=== PATIENT | male | born 1980 | race Caucasian/White ===

== ENCOUNTER 2021-11-27 11:51 | Inpatient (IN) | payer BC ==
--- NOTE | 2021-11-27 12:15 | ED ---
General Adult HPI - General Chief complaint: Psychiatric Symptoms Stated complaint: Mental Health Time Seen by Provider: 11/27/21 11:57 Source: patient, RN notes reviewed Mode of arrival: ambulatory Limitations: no limitations - History of Present Illness Initial comments: Patient is a pleasant 41-year-old male presenting to emergency department with mental health concerns. Patient reportedly has been off his medications. Patient reportedly was in an argument and threatened to harm himself with a knife. Patient is answering appropriately affirmative or negative however is not speaking at this time. Patient denies alcohol or street drug use. - Related Data Home Medications Medication Instructions Recorded Confirmed Albuterol Sulfate [Proventil Hfa] 2 puff INHALATION RT-Q4H PRN 11/27/21 11/27/21 Atorvastatin [Lipitor] 10 mg PO HS 11/27/21 11/27/21 Budesonide/Formoterol Fumarate 2 puff INHALATION RT-BID 11/27/21 11/27/21 [Symbicort 80-4.5 Mcg Inhaler] Sertraline [Zoloft] 150 mg PO HS 11/27/21 11/27/21 hydrOXYzine pamoate [Vistaril] 100 mg PO TID PRN 11/27/21 11/27/21 lamoTRIgine [LaMICtal] 50 mg PO DAILY 11/27/21 11/27/21 lamoTRIgine [LaMICtal] 100 mg PO HS 11/27/21 11/27/21 Allergies Allergy/AdvReac Type Severity Reaction Status Date / Time No Known Allergies Allergy Unverified 11/27/21 12:42 Review of Systems ROS Statement: Those systems with pertinent positive or pertinent negative responses have been documented in the HPI. ROS Other: All systems not noted in ROS Statement are negative. Constitutional: Denies: fever Eyes: Denies: eye pain ENT: Denies: ear pain Respiratory: Denies: dyspnea Cardiovascular: Denies: chest pain Endocrine: Denies: fatigue Gastrointestinal: Denies: abdominal pain Genitourinary: Denies: dysuria Musculoskeletal: Denies: back pain Skin: Denies: rash Psychiatric: Reports: depression, suicidal thoughts Past Medical History Past Medical History: No Reported History History of Any Multi-Drug Resistant Organisms: None Reported Past Surgical History: No Surgical Hx Reported Past Psychological History: Unable to Obtain Smoking Status: Current every day smoker Past Alcohol Use History: Daily Past Drug Use History: None Reported General Exam Limitations: no limitations General appearance: alert, in no apparent distress Head exam: Present: atraumatic Eye exam: Present: normal appearance Neck exam: Present: normal inspection Respiratory exam: Present: normal lung sounds bilaterally Cardiovascular Exam: Present: regular rate, normal rhythm GI/Abdominal exam: Present: soft. Absent: tenderness Extremities exam: Present: normal inspection Neurological exam: Present: alert. Absent: motor sensory deficit Psychiatric exam: Present: flat affect Skin exam: Present: normal color. Absent: abrasion Course Vital Signs 11/27/21 11:57 Temperature 98.5 F Pulse Rate 88 Respiratory 18 Rate Blood Pressure 142/102 O2 Sat by Pulse 95 Oximetry Medical Decision Making - Medical Decision Making Patient seen by mental health services with plans for admission. Disposition Clinical Impression: Depression Disposition: TRANSFER TO PSYCH HOSP/UNIT Is patient prescribed a controlled substance at d/c from ED?: No Referrals: None,Stated [Primary Care Provider] - 1-2 days Decision Time: 14:21
[2021-11-27] MEDS ORDERED: LORazepam 1 MG TAB PO STA (15:42)
[2021-11-27] MEDS ORDERED: ALBUTEROL INHALER 60 PUFF/8 GM INHALER (MHU) INHALATION PRN (18:27)
[2021-11-27] MEDS ORDERED: MAGNESIUM HYDROXIDE 2,400 MG/10 ML CUP PO PRN (18:28)
[2021-11-27] MEDS ORDERED: MAG HYDROX/AL HYDROX/SIMETH 30 ML CUP PO PRN (18:28)
[2021-11-27] MEDS ORDERED: ACETAMINOPHEN TAB 325 MG TAB PO PRN (18:28)
[2021-11-27] MEDS ORDERED: HALOPERIDOL LACTATE 5 MG/ML 1 ML VIAL IM PRN (18:30)
[2021-11-27] MEDS ORDERED: LORazepam 2 MG/ML INJ IM PRN (18:30)
[2021-11-27] MEDS ORDERED: haloperidoL 5 MG TAB PO PRN (18:30)
[2021-11-27] MEDS: lamoTRIgine 100 MG TAB PO SCH (21:05)
[2021-11-27] MEDS: ATORVASTATIN 10 MG TAB PO SCH (21:05)
[2021-11-27] MEDS: SERTRALINE 50 MG TAB PO SCH (21:05)
[2021-11-27] MEDS: SYMBICORT 80-4.5 MCG INHALER INHALATION SCH (21:06)
[2021-11-27] MEDS: NICOTINE 14MG/24HR PATCH TRANSDERM SCH (21:06)
--- NOTE | 2021-11-27 22:54 | P.MDCNMH ---
History of Present Illness H&P Date: 11/27/21 Chief Complaint: Suicidal attempt; medical clearance 41 year old man with history of depression, asthma, active nicotine and ETOH use presented for suicidal ideation with attempt to harm himself with a knife. Medicine consulted for clearance. Pt appears a bit tremulous today, but has no complaints of pain, and ROS is negative for n/v, f/c, cp, palps, dyspnea, abd pain, c/d, numbness/weakness. No labs or imaging to review. VSS afebrile, 112/70, HR 89. Review of Systems All Systems reviewed and pertinent positives and negatives noted in HPI, all other symptoms are negative Past Medical History Past Medical History: No Reported History History of Any Multi-Drug Resistant Organisms: None Reported Past Surgical History: No Surgical Hx Reported Past Psychological History: Unable to Obtain Smoking Status: Current every day smoker Past Alcohol Use History: Daily Past Drug Use History: None Reported Medications and Allergies Home Medications Medication Instructions Recorded Confirmed Type Albuterol Sulfate [Proventil Hfa] 2 puff INHALATION RT-Q4H PRN 11/27/21 11/27/21 History Atorvastatin [Lipitor] 10 mg PO HS 11/27/21 11/27/21 History Budesonide/Formoterol Fumarate 2 puff INHALATION RT-BID 11/27/21 11/27/21 History [Symbicort 80-4.5 Mcg Inhaler] Sertraline [Zoloft] 150 mg PO HS 11/27/21 11/27/21 History hydrOXYzine pamoate [Vistaril] 100 mg PO TID PRN 11/27/21 11/27/21 History lamoTRIgine [LaMICtal] 50 mg PO DAILY 11/27/21 11/27/21 History lamoTRIgine [LaMICtal] 100 mg PO HS 11/27/21 11/27/21 History Allergies Allergy/AdvReac Type Severity Reaction Status Date / Time No Known Allergies Allergy Unverified 11/27/21 12:42 Physical Exam Osteopathic Statement: *. No significant issues noted on an osteopathic structural exam other than those noted in the History and Physical/Consult. Vitals: Vital Signs Temp Pulse Resp BP Pulse Ox 11/27/21 17:53 89 20 112/70 11/27/21 11:57 98.5 F 88 18 142/102 95 Intake and Output 11/27/21 11/27/21 11/27/21 06:59 14:59 22:59 Other: Weight 78.88 kg Gen: awake, alert HEENT: normocephalic, atraumatic, good hearing acuity, moist mucous membranes Resp: good air exchange, breathing comfortably with no accessory muscle use CVS: good distal perfusion x 4, GI: soft, NTTP, ND : no SPT, no CVAT, carrero catheter not present MSK: no pitting edema, no clubbing Neuro: non-focal, moving all extremities Psych: cooperative, flat affect Cranial Nerve Examination - Cranial Nerves Cranial Nerve II- Optic: Intact Cranial Nerve III- Oculomotor: Intact Cranial Nerve IV- Trochlear: Intact Cranial Nerve V- Trigeminal: Intact Cranial Nerve - Abducens: Intact Cranial Nerve VII- Facial: Intact Cranial Nerve VIII- Auditory: Intact Cranial Nerve IX- Glossopharyngeal: Intact Cranial Nerve X- Vagus: Intact Cranial Nerve XI- Accessory: Intact Cranial Nerve XII- Hypoglossal: Intact Assessment and Plan Assessment: Asthma Nicotine use EtOH abuse -Continue home Symbicort -Albuterol when necessary -Nicotine patch -Alcohol cessation recommended, monitor for withdrawal -Ativan when necessary -Thiamine, folate, multivitamin -please follow up with us if there are any concerning lab findings on AM labs tomorrow Depression Suicidal ideation -Care per primary team A member of our group will be available 24/06 should any medical issues arise, please not hesitate to contact us, thank you for this consult.
[2021-11-28 07:54] LABS: Basophils # (A) 0.1 k/uL (0-0.2); Basophils % (A) 1 %; Eosinophils # (A) 0.2 k/uL (0-0.7); Eosinophils % (A) 3 %; HCT 47.5 % (39.0-53.0); HGB 15.9 gm/dL (13.0-17.5); Lymphocytes # (A) 1.7 k/uL (1.0-4.8); Lymphocytes % (A) 25 %; MCH 31.6 pg (25.0-35.0); MCHC 33.5 g/dL (31.0-37.0); MCV 94.6 fL (80.0-100.0); Monocytes # (A) 0.4 k/uL (0-1.0); Monocytes % (A) 6 %; Neutrophils # (A) 4.4 k/uL (1.3-7.7); Neutrophils % (A) 65 %; Platelet Count 261 k/uL (150-450); RBC 5.03 m/uL (4.30-5.90); RDW 12.6 % (11.5-15.5); WBC 6.8 k/uL (3.8-10.6)
[2021-11-28 08:20] LABS: ALT 17 U/L (4-49); AST 33 U/L (17-59); African American GFR (CKD) >90 (>60 ml/min/1.73 sqM); Albumin 4.5 g/dL (3.5-5.0); Alkaline Phosphatase 88 U/L (38-126); Anion Gap 8 mmol/L; Blood Urea Nitrogen 15 mg/dL (9-20); Calcium 10.1 mg/dL (8.4-10.2); Carbon Dioxide 27 mmol/L (22-30); Chloride 109 mmol/L (98-107); Glucose 91 mg/dL (74-99); Non-African American GFR(CKD) >90 (>60 ml/min/1.73 sqM); Potassium 4.6 mmol/L (3.5-5.1); Sodium 144 mmol/L (137-145); Total Bilirubin 0.6 mg/dL (0.2-1.3); Total Protein 7.4 g/dL (6.3-8.2)
[2021-11-28] MEDS: NICOTINE 14MG/24HR PATCH TRANSDERM SCH (09:18)
[2021-11-28] MEDS: MULTIVITAMINS, THERA 1 EACH TAB PO SCH (09:19)
[2021-11-28] MEDS: FOLIC ACID 1 MG TAB PO SCH (09:19)
[2021-11-28] MEDS: THIAMINE 100 MG TAB PO SCH (09:19)
[2021-11-28] MEDS: lamoTRIgine 25 MG TAB PO SCH (09:19)
[2021-11-28] MEDS: LORazepam 1 MG TAB PO PRN (09:24)
[2021-11-28] MEDS: SYMBICORT 80-4.5 MCG INHALER INHALATION SCH (12:12)
--- NOTE | 2021-11-28 12:26 | P.HP ---
Psychiatric H&P - . H&P Date: 11/28/21 History & Physical: Allergies Allergy/AdvReac Type Severity Reaction Status Date / Time No Known Allergies Allergy Unverified 11/27/21 12:42 Vital Signs Temp 98.5 F 11/27/21 11:57 Pulse 89 11/27/21 17:53 Resp 20 11/27/21 17:53 BP 112/70 11/27/21 17:53 Pulse Ox 95 11/27/21 11:57 Intake & Output 11/27/21 11/28/21 11/28/21 18:59 06:59 18:59 Weight 78.88 kg Laboratory Last Values WBC 6.8 k/uL (3.8-10.6) 11/28/21 07:12 RBC 5.03 m/uL (4.30-5.90) 11/28/21 07:12 Hgb 15.9 gm/dL (13.0-17.5) 11/28/21 07:12 Hct 47.5 % (39.0-53.0) 11/28/21 07:12 MCV 94.6 fL (80.0-100.0) 11/28/21 07:12 MCH 31.6 pg (25.0-35.0) 11/28/21 07:12 MCHC 33.5 g/dL (31.0-37.0) 11/28/21 07:12 RDW 12.6 % (11.5-15.5) 11/28/21 07:12 Plt Count 261 k/uL (150-450) 11/28/21 07:12 MPV 8.0 11/28/21 07:12 Neutrophils % 65 % 11/28/21 07:12 Lymphocytes % 25 % 11/28/21 07:12 Monocytes % 6 % 11/28/21 07:12 Eosinophils % 3 % 11/28/21 07:12 Basophils % 1 % 11/28/21 07:12 Neutrophils # 4.4 k/uL (1.3-7.7) 11/28/21 07:12 Lymphocytes # 1.7 k/uL (1.0-4.8) 11/28/21 07:12 Monocytes # 0.4 k/uL (0-1.0) 11/28/21 07:12 Eosinophils # 0.2 k/uL (0-0.7) 11/28/21 07:12 Basophils # 0.1 k/uL (0-0.2) 11/28/21 07:12 Sodium 144 mmol/L (137-145) 11/28/21 07:12 Potassium 4.6 mmol/L (3.5-5.1) 11/28/21 07:12 Chloride 109 mmol/L (98-107) H 11/28/21 07:12 Carbon Dioxide 27 mmol/L (22-30) 11/28/21 07:12 Anion Gap 8 mmol/L 11/28/21 07:12 BUN 15 mg/dL (9-20) 11/28/21 07:12 Creatinine 0.87 mg/dL (0.66-1.25) 11/28/21 07:12 Est GFR (CKD-EPI)AfAm >90 (>60 ml/min/1.73 sqM) 11/28/21 07:12 Est GFR (CKD-EPI)NonAf >90 (>60 ml/min/1.73 sqM) 11/28/21 07:12 Glucose 91 mg/dL (74-99) 11/28/21 07:12 Calcium 10.1 mg/dL (8.4-10.2) 11/28/21 07:12 Total Bilirubin 0.6 mg/dL (0.2-1.3) 11/28/21 07:12 AST 33 U/L (17-59) 11/28/21 07:12 ALT 17 U/L (4-49) 11/28/21 07:12 Alkaline Phosphatase 88 U/L (38-126) 11/28/21 07:12 Total Protein 7.4 g/dL (6.3-8.2) 11/28/21 07:12 Albumin 4.5 g/dL (3.5-5.0) 11/28/21 07:12 TSH 0.711 mIU/L (0.465-4.680) 11/28/21 07:12 Coronavirus (PCR) Not Detected (Not Detectd) 11/27/21 14:22 11/28/21 12:26 IDENTIFYING DATA: Patient is a , unemployed, 41-year-old male with significant history of bipolar disorder who presented with suicidal ideation and worsening depression. HPI: Patient presented to the hospital on 11/27/2021, accompanied by his family for depression and suicidal ideation. When evaluated by the EPS nurse, the patient was noted to be vague and unable to provide any clear history. The patient did admit that he was expressing suicidal ideation and reports that he cut himself in the finger as an attempt. As per patient's family, the patient also has not slept in a couple of days and has had a decrease in appetite. Upon evaluation on the unit, the patient continues to be vague in providing any significant history of prior to this presentation the hospital. The patient does admit that he has been feeling increasing depressed over the past few weeks and this culminated in him constant planning suicide and attempting to cut his finger in an attempt to kill himself. The he is expressing any acute stressors, the patient reports that he and his have not been getting along. The patient does not elaborate. He then later relented to this provider that he has been experiencing auditory hallucinations. He describes that he has been hearing the voice of the ancient [place] emperor Marge Hammer and that this has been bothering him. He reports that he has been experiencing auditory hallucinations intermittently for the past 6 years. He describes these hallucinations is being various different people that tell him different things. He reports that they're occasionally commanding in nature. He is otherwise denying any visual hallucinations. He reports no other delusions at this time. He reports no thought insertion, thought deletion, thought projection, paranoia, or any grandiosity. The patient reports that he has been adherent with his medication and he follows up with [facility] but that none of his medications work. He reports that he is willing to sign a release of information for us to speak with his as he is currently very vague and is unable to provide any clear history of events leading up to this hospitalization. PAST PSYCHIATRIC HISTORY: Patient reports that he follows with [facility]. He reports that he has been adherent with his home medications of Zoloft, Lamictal, and Vistaril. The patient has had numerous inpatient psychiatric hospitalizations with the last time being in [facility] in April 2021. The patient reports that he has been on numerous psychiatric medications including most antipsychotics. Seroquel, Abilify, and Invega. He reports that none of these medications have worked in the past. Patient reports prior attempts at suicide last time being him cutting his finger. PMH: Past Medical History: No Reported History History of Any Multi-Drug Resistant Organisms: None Reported Past Surgical History: No Surgical Hx Reported Past Psychological History: Unable to Obtain Smoking Status: Current every day smoker Past Alcohol Use History: Daily Past Drug Use History: None Reported ALLERGIES: NO KNOWN DRUG ALLERGIES CHEMICAL DEPENDENCY HISTORY:. Patient reports that he uses marijuana 1-2 times per month. He reports he smokes one half per day of tobacco. He denies any alcohol use. He denies any other drug use. FAMILY PSYCHIATRIC/SUBSTANCE USE HISTORY: The patient is unable to provide any previous family psychiatric or substance abuse history. SOCIAL HISTORY: Patient is currently for 14 years with his Julissa and they have 2 children ages 7 and 10 together. He is currently unemployed. MENTAL STATUS EXAM: General Appearance: Patient appears to be stated age but appears to be somewhat somnolent however he is directable, and attempts to cooperate. Patient appears to have poor hygiene and grooming. Behavior: Patient is seated without any agitated behavior. Eye contact is intermittent. Patient appears somnolent at this time. Speech: Patient's speech is monotone, and nonspontaneous, vague. Mood/Affect: Patient reports their mood is depressed, affect appears to be somnolent. Suicidality/Homicidality: Patient denies having any homicidal ideation intent or plan. Patient endorses suicidal ideation. Perceptions: Patient denies any visual hallucinations however patient reports auditory hallucinations. Though content/process: There is no evidence of any delusional thought content and thought process is linear and goal-directed. Memory and concentration: AOX3, grossly intact for the purposes of this session. Can spell "WORLD" backwards Judgment and insight: poor STRENGTHS/WEAKNESSES: Strength is that the patient appears to have a supportive family. Weakness is that the patient has previous attempts at suicide. He appears to be actively psychotic. INTELLECT: average IMPRESSIONS: Bipolar disorder, unspecified Rule out schizoaffective disorder, bipolar type Nicotine dependence Cannabis use disorder PLAN: -Patient is admitted under voluntary status to [facility]HU for stabilization of psychiatric symptoms and safety. Patient signed adult voluntary form and medication consent and is placed in patient's chart. -Medications : Will start patient on His home medications of Zoloft 150 mg at bedtime for depression/anxiety, Lamictal 50 mg by mouth every morning and 100 mg by mouth daily at bedtime for mood stabilization, and we will start the patient on Prolixin 2.5 mg at bedtime for psychosis. -Ativan and Haldol PRN for agitation/aggression -Patient was counselled on substance abuse and desired to cut back on use -Patient was informed of the risks, benefits and side effects of the medication and patient verbally consented to taking the medications. Patient signed med consent form and was placed in chart. -Internal Medicine consult to perform medical evaluation and physical. -NRT - nicotine patch -SW on board for discharge planning. Encourage patient to participate in groups to work on coping skills. 11/28/21 12:26
[2021-11-28 18:15] LABS: Chol/HDL Ratio 7.07 Ratio; LDL Cholesterol,Calculated 103.9 mg/dL (0.0-131.0)
[2021-11-28] MEDS: SYMBICORT 80-4.5 MCG INHALER (MHU) INHALATION SCH (21:26)
[2021-11-28] MEDS: SERTRALINE 50 MG TAB PO SCH (21:28)
[2021-11-28] MEDS: lamoTRIgine 100 MG TAB PO SCH (21:28)
[2021-11-28] MEDS: ATORVASTATIN 10 MG TAB PO SCH (21:28)
[2021-11-29] MEDS: NICOTINE 14MG/24HR PATCH TRANSDERM SCH (08:04)
[2021-11-29] MEDS: lamoTRIgine 25 MG TAB PO SCH (08:05)
[2021-11-29] MEDS: FOLIC ACID 1 MG TAB PO SCH (08:05)
[2021-11-29] MEDS: THIAMINE 100 MG TAB PO SCH (08:05)
[2021-11-29] MEDS: MULTIVITAMINS, THERA 1 EACH TAB PO SCH (08:05)
[2021-11-29] MEDS: SYMBICORT 80-4.5 MCG INHALER (MHU) INHALATION SCH ×2 (08:39→21:10)
--- NOTE | 2021-11-29 11:03 | P.PN ---
Progress Note - Text Progress Note Date: 11/29/21 Interval History: Patient was seen resting in bed and was directable and agreeable to speak with freelance writer in his room. Patient continues to endorse auditory hallucinations. He reports that he continues to hear voices that are commanding in nature. He continues to report some paranoia stating that he is feeling like he is able to hear the full conversations expresses concern that his has been cheating on him. He has been adherent with his medications and is not endorsing any significant side effects at this time. He is not reporting any suicidal or homicidal ideation, intention, and/or plan. He is not reporting any visual hallucinations. He reports no delusions but does endorse paranoia. Collateral information was obtained by the patient's Lauren Demarco after the patient signed a release of information. The patient's reports that the patient first experienced a psychotic episode when he was 34 after significant stress at work. She reports that he has had occasional episodes where he would be extremely paranoid of her peer to be responding to internal stimuli. She reports that she notices when his affect becomes flatter and he becomes more suspicious. She states that he has had a few hospitalizations prior to this one for this but schizophrenia was never diagnosed. She does express that the patient is often paranoid about her cheating on him and often references conversations that never took place. Mental Status Exam: General Appearance: Patient appears to be stated age is alert, directable, and cooperative. Behavior: Patient is calmly seated without any agitated behavior. Eye contact is appropriate. Speech: Patient's speech is fluent and nonpressured. Mood/Affect: Mood is okay, affect is flat. Suicidality/Homicidality: Patient denies having any suicidal or homicidal ideation intent or plan. Perceptions: Patient denies any visual hallucinations but continues to endorse auditory hallucinations. Though content/process: Paranoia is evident. Memory and concentration: AOX3, grossly intact for the purposes of this session Judgment and insight: Improving mildly Vital Signs Temp 97.8 F 11/29/21 09:31 Pulse 89 11/27/21 17:53 Resp 91 H 11/29/21 09:29 BP 119/79 11/29/21 09:31 Pulse Ox 95 11/27/21 11:57 Laboratory Results - Last 24 Hours 11/28/21 11/28/21 07:12 07:[address] Glu mg/dL 123 Hemoglobin A1c 5.9 Triglycerides 266.00 H Cholesterol 183.00 LDL Cholesterol, Calc 103.9 VLDL Cholesterol, Calc 53.20 H HDL Cholesterol 25.90 L Cholesterol/HDL Ratio 7.07 Assessment Schizoaffective disorder, bipolar type Nicotine dependence Cannabis use disorder Plan: -Patient continues to meet criteria for inpatient psychiatric admission for symptom stabilization and safety. Patient has signed adult voluntary form and medication consent and was placed in patient's chart. -Medications: Continue Zoloft 150 mg by mouth daily for depression/anxiety Continue Lamictal 50 mg by mouth every morning and 100 mg by mouth daily at bedtime for mood stabilization Increase Prolixin to 5 mg by mouth at bedtime for psychosis -When necessary Ativan and Haldol for agitation/aggression. -NRT - nicotine patch -SW on board for discharge planning. Encouraged the patient to participate in milieu.
[2021-11-29 16:20] LABS: Amphetamine Screen,Urine Not Detected (NotDetected); Barbiturate Screen,Urine Not Detected (NotDetected); Benzodiazepines Screen,Urine Detected (NotDetected); Cocaine Screen,Urine Not Detected (NotDetected); Methadone Screen, Urine Not Detected (NotDetected); Opiate Screen,Urine Not Detected (NotDetected); Oxycodone Screen, Urine Not Detected (NotDetected); Phencyclidine Screen,Urine Not Detected (NotDetected); Tricyclic Antidepressant,Urine Not Detected (NotDetected); Urn Cannabinoid Scrn Not Detected (NotDetected)
[2021-11-29] MEDS: SERTRALINE 50 MG TAB PO SCH (21:09)
[2021-11-29] MEDS: lamoTRIgine 100 MG TAB PO SCH (21:09)
[2021-11-29] MEDS: ATORVASTATIN 10 MG TAB PO SCH (21:09)
[2021-11-30 07:08] VITALS: RESP 16
[2021-11-30] MEDS: lamoTRIgine 25 MG TAB PO SCH (08:40)
[2021-11-30] MEDS: THIAMINE 100 MG TAB PO SCH (08:40)
[2021-11-30] MEDS: FOLIC ACID 1 MG TAB PO SCH (08:40)
[2021-11-30] MEDS: SYMBICORT 80-4.5 MCG INHALER (MHU) INHALATION SCH ×2 (08:40→20:33)
[2021-11-30] MEDS: NICOTINE 14MG/24HR PATCH TRANSDERM SCH (08:40)
[2021-11-30] MEDS: MULTIVITAMINS, THERA 1 EACH TAB PO SCH (08:40)
--- NOTE | 2021-11-30 11:49 | P.PN ---
Progress Note - Text Progress Note Date: 11/30/21 Interval History: Patient was seen resting in bed and was directable and agreeable to speak with writer producer in his room. Patient expresses a strong desire for discharge. He is currently reporting auditory hallucinations but states they are less frequent and less intense as before. He does express that he has significant marital stressors and expresses distrust of his . He is not endorsing any suicidal or homicidal ideation, intention, and/or plan. He reports no issues with sleep o r appetite. Mental Status Exam: General Appearance: Patient appears to be stated age is alert, directable, and cooperative. Behavior: Patient is calmly seated without any agitated behavior. Eye contact is appropriate. Speech: Patient's speech is fluent and nonpressured. Mood/Affect: Mood is irritable, affect is irritable. Suicidality/Homicidality: Patient denies having any suicidal or homicidal ideation intent or plan. Perceptions: Patient denies any visual hallucinations but continues to endorse auditory hallucinations. Though content/process: Paranoia is evident. Memory and concentration: AOX3, grossly intact for the purposes of this session Judgment and insight: Poor Vital Signs Temp 98.1 F 11/30/21 06:42 Pulse 66 11/30/21 06:42 Resp 16 11/30/21 06:42 BP 110/71 11/30/21 06:42 Pulse Ox 95 11/27/21 11:57 Laboratory Results - Last 24 Hours 11/29/21 16:01 Urine Opiates Screen Not Detected Ur Oxycodone Screen Not Detected Urine Methadone Screen Not Detected Ur Propoxyphene Screen Not Detected Ur Barbiturates Screen Not Detected U Tricyclic Antidepress Not Detected Ur Phencyclidine Scrn Not Detected Ur Amphetamines Screen Not Detected U Methamphetamines Scrn Not Detected U Benzodiazepines Scrn Detected H Urine Cocaine Screen Not Detected U Marijuana (THC) Screen Not Detected Assessment Schizoaffective disorder, bipolar type Nicotine dependence Cannabis use disorder Plan: -Patient continues to meet criteria for inpatient psychiatric admission for symptom stabilization and safety. Patient has signed adult voluntary form and medication consent and was placed in patient's chart. -Medications: Continue Zoloft 150 mg by mouth daily for depression/anxiety Continue Lamictal 50 mg by mouth every morning and 100 mg by mouth daily at bedtime for mood stabilization Increase Prolixin to 2.5 mg in the morning and 5 mg by mouth at bedtime for psychosis -When necessary Ativan and Haldol for agitation/aggression. -NRT - nicotine patch -SW on board for discharge planning. Encouraged the patient to participate in milieu.
[2021-11-30] MEDS: SERTRALINE 50 MG TAB PO SCH (20:30)
[2021-11-30] MEDS: ATORVASTATIN 10 MG TAB PO SCH (20:30)
[2021-11-30] MEDS: lamoTRIgine 100 MG TAB PO SCH (20:30)
[2021-11-30] MEDS: LORazepam 1 MG TAB PO PRN (22:28)
[2021-12-01] MEDS: NICOTINE 14MG/24HR PATCH TRANSDERM SCH (07:53)
[2021-12-01] MEDS: FOLIC ACID 1 MG TAB PO SCH (07:54)
[2021-12-01] MEDS: THIAMINE 100 MG TAB PO SCH (07:54)
[2021-12-01] MEDS: MULTIVITAMINS, THERA 1 EACH TAB PO SCH (07:54)
[2021-12-01] MEDS: SYMBICORT 80-4.5 MCG INHALER (MHU) INHALATION SCH ×2 (07:54→22:35)
[2021-12-01] MEDS: lamoTRIgine 25 MG TAB PO SCH (07:55)
--- NOTE | 2021-12-01 10:30 | P.PN ---
Progress Note - Text Progress Note Date: 12/01/21 Interval History: Patient was seen resting in bed and was directable and agreeable to speak with senior writer in the office. The patient continues to maintain that he no longer requires inpatient psychiatric admission. Despite this, the patient does express of this provider significant paranoid thoughts. He reports that he will have constantly been trying to monitor his computer usage and he has noticed people placing "tracking cookies" on my computer despite constantly resetting it. He continues to maintain that the primary reason he was admitted was due to ongoing social stressors, in particular with his , and not psychotic symptoms that he was previously presenting with. He has otherwise been in adherent with his medications and is not endorsing any significant side effects at this time. The patient is not reporting any suicidal or homicidal ideation, intention,/or plan. He is not reporting any auditory or visual hallucinations today. He reports no issues regarding his sleep or his appetite. He does report some constipation and some urinary straining. Mental Status Exam: General Appearance: Patient appears to be stated age is alert, directable, and cooperative. Behavior: Patient is calmly seated without any agitated behavior. Eye contact is appropriate. Speech: Patient's speech is fluent and nonpressured. Mood/Affect: Mood is irritable, affect is irritable. Suicidality/Homicidality: Patient denies having any suicidal or homicidal ideat ion intent or plan. Perceptions: Patient denies any visual hallucinations but continues to endorse auditory hallucinations. Though content/process: Paranoia is evident. Some delusional thoughts regarding surveillance. Memory and concentration: AOX3, grossly intact for the purposes of this session Judgment and insight: Poor Vital Signs Temp 98.1 F 11/30/21 06:42 Pulse 66 11/30/21 06:42 Resp 16 11/30/21 06:42 BP 110/71 11/30/21 06:42 Pulse Ox 95 11/27/21 11:57 Intake & Output 11/30/21 12/01/21 12/01/21 18:59 06:59 18:59 Weight 78.88 kg Assessment Schizoaffective disorder, bipolar type Nicotine dependence Cannabis use disorder Plan: -Patient continues to meet criteria for inpatient psychiatric admission for symptom stabilization and safety. Patient has signed adult voluntary form and medication consent and was placed in patient's chart. -Medications: Continue Zoloft 150 mg by mouth daily for depression/anxiety Continue Lamictal 50 mg by mouth every morning and 100 mg by mouth daily at bedtime for mood stabilization Increase Prolixin to 5 mg twice a day by mouth for psychosis -When necessary Ativan and Haldol for agitation/aggression. -NRT - nicotine patch -SW on board for discharge planning. Encouraged the patient to participate in milieu.
[2021-12-01] MEDS: SERTRALINE 50 MG TAB PO SCH (22:37)
[2021-12-01] MEDS: ATORVASTATIN 10 MG TAB PO SCH (22:37)
[2021-12-01] MEDS: lamoTRIgine 100 MG TAB PO SCH (22:37)
[2021-12-02] MEDS: MULTIVITAMINS, THERA 1 EACH TAB PO SCH (08:19)
[2021-12-02] MEDS: NICOTINE 14MG/24HR PATCH TRANSDERM SCH (08:19)
[2021-12-02] MEDS: lamoTRIgine 25 MG TAB PO SCH (08:20)
[2021-12-02] MEDS: THIAMINE 100 MG TAB PO SCH (08:20)
[2021-12-02] MEDS: FOLIC ACID 1 MG TAB PO SCH (08:20)
[2021-12-02] MEDS: SYMBICORT 80-4.5 MCG INHALER (MHU) INHALATION SCH ×2 (08:21→22:05)
--- NOTE | 2021-12-02 11:45 | P.PN ---
Progress Note - Text Progress Note Date: 12/02/21 Interval History: Patient was seen resting in bed and was directable and agreeable to speak with signwriter in the office. The patient continues to focus on the relationship that he has with his and states that he is unhappy due to her "coldness." He does express that he is experiencing a bilateral upper extremity tremor. He reports that this does occur to him occasionally. He does have a significant family history of Friedreich's ataxia however has not been evaluated for this. He is otherwise not reporting any suicidal or homicidal ideation, intention, and/or plan. He is not reporting any auditory or visual hallucinations. He denies any paranoia or other delusions. Mental Status Exam: General Appearance: Patient appears to be stated age is alert, directable, and cooperative. Behavior: Patient is calmly seated without any agitated behavior. Eye contact is appropriate. Speech: Patient's speech is fluent and nonpressured. Mood/Affect: Mood is "okay." Affect is constricted and euthymic today. Suicidality/Homicidality: Patient denies having any suicidal or homicidal ideation intent or plan. Perceptions: Patient denies any visual hallucinations but continues to endorse auditory hallucinations. Though content/process: The patient is linear and logical and short conversation today. Memory and concentration: AOX3, grossly intact for the purposes of this session Judgment and insight: Mildly improving. Vital Signs Temp 98.1 F 11/30/21 06:42 Pulse 66 12/01/21 16:48 Resp 16 12/01/21 16:48 BP 103/67 12/01/21 16:48 Pulse Ox 95 11/27/21 11:57 Assessment Schizoaffective disorder, bipolar type Nicotine dependence Cannabis use disorder Plan: -Patient continues to meet criteria for inpatient psychiatric admission for symptom stabilization and safety. Patient has signed adult voluntary form and medication consent and was placed in patient's chart. -Medications: Continue Zoloft 150 mg by mouth daily for depression/anxiety Continue Lamictal 50 mg by mouth every morning and 100 mg by mouth daily at bedtime for mood stabilization Continue Prolixin 5 mg by mouth twice a day for psychosis Start Cogentin 0.5 mg by mouth twice a day for EPS side effects -When necessary Ativan and Haldol for agitation/aggression. -NRT - nicotine patch -SW on board for discharge planning. Encouraged the patient to participate in milieu.
[2021-12-02] MEDS: SERTRALINE 50 MG TAB PO SCH (22:06)
[2021-12-02] MEDS: BENZTROPINE MESYLATE 0.5 MG TAB PO SCH (22:06)
[2021-12-02] MEDS: lamoTRIgine 100 MG TAB PO SCH (22:06)
[2021-12-02] MEDS: ATORVASTATIN 10 MG TAB PO SCH (22:07)
[2021-12-03] MEDS: SYMBICORT 80-4.5 MCG INHALER (MHU) INHALATION SCH ×2 (08:09→20:48)
[2021-12-03] MEDS: lamoTRIgine 25 MG TAB PO SCH (08:09)
[2021-12-03] MEDS: THIAMINE 100 MG TAB PO SCH (08:09)
[2021-12-03] MEDS: MULTIVITAMINS, THERA 1 EACH TAB PO SCH (08:10)
[2021-12-03] MEDS: BENZTROPINE MESYLATE 0.5 MG TAB PO SCH ×2 (08:10→20:49)
[2021-12-03] MEDS: NICOTINE 14MG/24HR PATCH TRANSDERM SCH (08:10)
[2021-12-03] MEDS: FOLIC ACID 1 MG TAB PO SCH (08:10)
--- NOTE | 2021-12-03 12:56 | P.PN ---
Progress Note - Text Progress Note Date: 12/03/21 Interval History: Patient was seen resting in bed and was directable and agreeable to speak with health underwriter in the office. The patient is not reporting any significant issues today. He denies any auditory or visual hallucinations. He reports no paranoia or other delusions. He denies any suicidal or homicidal ideation, intention, and/or plan. The patient stresses that he is looking forward to discharge. He does report that he experienced some muscle twitches due to the medications however states it is manageable with the addition of Cogentin. He does express that he has been experiencing increased tremors in general and was informed to check with his neurologist and/or primary care physician to be evaluated for Friedreich's ataxia as he does have a significant family history. Mental Status Exam: General Appearance: Patient appears to be stated age is alert, directable, and cooperative. Behavior: Patient is calmly seated without any agitated behavior. Eye contact is appropriate. Speech: Patient's speech is fluent and nonpressured. Mood/Affect: Mood is "alright." Affect is constricted and euthymic today. Suicidality/Homicidality: Patient denies having any suicidal or homicidal ideation intent or plan. Perceptions: Patient denies any visual hallucinations but continues to endorse auditory hallucinations. Though content/process: The patient is linear and logical and short conversation today. Memory and concentration: AOX3, grossly intact for the purposes of this session Judgment and insight: Mildly improving. Vital Signs Temp 98.1 F 11/30/21 06:42 Pulse 68 12/03/21 08:32 Resp 16 12/01/21 16:48 BP 110/71 12/03/21 08:32 Pulse Ox 95 11/27/21 11:57 Assessment Schizoaffective disorder, bipolar type Nicotine dependence Cannabis use disorder Plan: -Patient continues to meet criteria for inpatient psychiatric admission for symptom stabilization and safety. Patient has signed adult voluntary form and medication consent and was placed in patient's chart. -Medications: Continue Zoloft 150 mg by mouth daily for depression/anxiety Continue Lamictal 50 mg by mouth every morning and 100 mg by mouth daily at bedtime for mood stabilization Continue Prolixin 5 mg by mouth twice a day for psychosis Continue Cogentin 0.5 mg by mouth twice a day for EPS side effects -When necessary Ativan and Haldol for agitation/aggression. -NRT - nicotine patch -SW on board for discharge planning. Encouraged the patient to participate in milieu.
[2021-12-03] MEDS: ATORVASTATIN 10 MG TAB PO SCH (20:49)
[2021-12-03] MEDS: SERTRALINE 50 MG TAB PO SCH (20:49)
[2021-12-03] MEDS: lamoTRIgine 100 MG TAB PO SCH (20:49)
[2021-12-04 01:55] VITALS: BP 101/64; PULSE 61; TEMP 97.4
[2021-12-04] MEDS: NICOTINE 14MG/24HR PATCH TRANSDERM SCH (08:03)
[2021-12-04] MEDS: MULTIVITAMINS, THERA 1 EACH TAB PO SCH (08:04)
[2021-12-04] MEDS: SYMBICORT 80-4.5 MCG INHALER (MHU) INHALATION SCH (08:04)
[2021-12-04] MEDS: BENZTROPINE MESYLATE 0.5 MG TAB PO SCH (08:04)
[2021-12-04] MEDS: THIAMINE 100 MG TAB PO SCH (08:04)
[2021-12-04] MEDS: FOLIC ACID 1 MG TAB PO SCH (08:04)
[2021-12-04] MEDS: lamoTRIgine 25 MG TAB PO SCH (08:04)
--- NOTE | 2021-12-04 11:56 | P.DS ---
Providers Date of admission: 11/27/21 17:29 Expected date of discharge: 12/04/21 Attending physician: Blaine Dsouza MD Consults: 11/27/21 18:28 Consult Physician Routine Consulting Provider: Sandra Rivera Consult Reason/Comments: H&P and medical Do you want consulting provider notified?: Yes Primary care physician: Stated None - Discharge Diagnosis(es) (1) Schizoaffective disorder, bipolar type Current Visit: Yes Status: Acute (2) Cannabis abuse Current Visit: Yes Status: Chronic Priority: Medium (3) Nicotine dependence Current Visit: Yes Status: Chronic Priority: Medium Hospital Course: Admission HPI: Patient is a , unemployed, 41-year-old male with significant history of bipolar disorder who presented with suicidal ideation and worsening depression. Patient presented to the hospital on 11/27/2021, accompanied by his family for depression and suicidal ideation. When evaluated by the EPS nurse, the patient was noted to be vague and unable to provide any clear history. The patient did admit that he was expressing suicidal ideation and reports that he cut himself in the finger as an attempt. As per patient's family, the patient also has not slept in a couple of days and has had a decrease in appetite. Upon evaluation on the unit, the patient continues to be vague in providing any significant history of prior to this presentation the hospital. The patient does admit that he has been feeling increasing depressed over the past few weeks and this culminated in him constant planning suicide and attempting to cut his finger in an attempt to kill himself. The he is expressing any acute stressors, the patient reports that he and his have not been getting along. The patient does not elaborate. He then later relented to this provider that he has been experiencing auditory hallucinations. He describes that he has been heari ng the voice of the ancient [place] emperor Marge Hammer and that this has been bothering him. He reports that he has been experiencing auditory hallucinations intermittently for the past 6 years. He describes these hallucinations is being various different people that tell him different things. He reports that they're occasionally commanding in nature. He is otherwise denying any visual hallucinations. He reports no other delusions at this time. He reports no thought insertion, thought deletion, thought projection, paranoia, or any grandiosity. The patient reports that he has been adherent with his medication and he follows up with [facility] but that none of his medications work. He reports that he is willing to sign a release of information for us to speak with his as he is currently very vague and is unable to provide any clear history of events leading up to this hospitalization. Patient reports that he follows with [facility]. He reports that he has been adherent with his home medications of Zoloft, Lamictal, and Vistaril. The patient has had numerous inpatient psychiatric hospitalizations with the last time being in [facility] in April 2021. The patient reports that he has been on numerous psychiatric medications including most antipsychotics. Seroquel, Abilify, and Invega. He reports that none of these medications have worked in the past. Patient reports prior attempts at suicide last time being him cutting his finger. Hospital course: Upon admission to the unit patient was initially presenting as significantly psychotic with the blunted to flat affect as well as endorsing significant auditory hallucinations as well as paranoia and some bizarre delusions. Patient was however directable and agreeable to commence treatment. Patient got along well with other patients on the unit and followed unit protocol. Patient was compliant with the medications and denied any side effects throughout hospital course. Patient was started on Prolixin 2.5 mg at bedtime to address his psychosis and his home medications of Zoloft and Lamictal were continued. The patient's Prolixin was gradually titrated to a final dose of 5 mg twice a day. On this regimen, the patient despite significant improvement in regards to psychotic symptoms. Initially, the patient was irritable and demanding for discharge however was redirected and is the medications continue to increase in his system, the patient became more alert and oriented as well as develop better insight and judgment into his admission. The patient does have some tremors and does have a significant family history of Friedreich's ataxia and was informed to have this evaluated by neurologist. Cogentin was added to his regimen to address any kind of EPS symptoms secondary to Prolixin. The patient participated in both individual and milieu therapies and was also seen by the medical team for history and physical examination. On the day of discharge, the patient is not endorsing any suicidal or homicidal ideation, intention, and/or plan. He is not reporting any auditory or visual hallucinations and denies any paranoia or other delusions. Furthermore, the patient's range of affect increased and the patient endorsed future orientation and a strong desire to continue his medications and follow-up with his outpatient treatment. The patient does have a significant history of marijuana use and was counseled on abstaining from substances including alcohol and marijuana. The patient reported no access to firearms or other weapons. Prior to discharge, planning meeting the arranged by social work nurse to answer questions and ensure safety. Mental status exam: General Appearance: Patient appears to be stated age is alert, pleasant, and cooperative. Patient is in no acute distress and has fair hygiene and grooming Behavior: Patient is calmly seated without any agitated behavior. Eye contact is appropriate. Speech: Patient's speech is fluent and nonpressured. Spontaneous with normal rate and volume. Mood/Affect: Patient reports their mood is "much better", affect is congruent and euthymic. Suicidality/Homicidality: Patient denies having any suicidal or homicidal ideation intent or plan. Perceptions: Patient denies any auditory or visual hallucinations. Though content/process: There is no evidence of any delusional thought content and thought process is linear and goal-directed. Patient is future oriented. Memory and concentration: AOX3, grossly intact for the purposes of this session. Can spell "WORLD" backwards correctly. Judgment and insight: Improved with guarded prognosis Vital Signs Temp 97.4 F L 12/04/21 01:54 Pulse 61 12/04/21 01:54 Resp 16 12/04/21 01:54 BP 101/64 12/04/21 01:54 Pulse Ox 96 12/04/21 01:54 Intake & Output 12/03/21 12/04/21 12/04/21 18:59 06:59 18:59 Weight 78.3 kg Impression: Schizoaffective disorder, bipolar type Nicotine dependence Cannabis use disorder Rule out Friedreich's ataxia. Plan: -Continue with discharge today as patient has improved and stabilized psychiatrically and is not currently an imminent threat to himself and/or others. The patient will remain at elevated risk compared to the general population due to the severity of his mental illness. -Continue medications: Continue Lamictal 50 mg by mouth every morning and 100 mg by mouth daily at bedt yan for mood stabilization Continue Zoloft 150 mg by mouth daily at bedtime for depression/anxiety Continue Prolixin 5 mg by mouth twice a day for psychosis Continue Cogentin 0.5 mg by mouth twice a day for EPS side effects -Patient was counseled on the need for medication compliance and appropriate follow-up at mental health and also primary care for medical issues. Patient verbalized understanding and agreed. -Social work to arrange for and conduct family meeting to ensure safety upon discharge and answer any questions/concerns. Social work also to arrange for patients follow up appointments with [facility] for psychiatric care along with follow up with primary care provider. -Patient counseled on abstaining from recreational drugs and marijuana and alcohol. Was informed/educated on the adverse effects on their physical and mental health. Patient verbally agreed and understood. -Patient was instructed to return to the hospital or seek immediate medical care if their psychiatric or medical symptoms do worsen or reoccur. -The patient was informed to follow-up with the neurologist regarding possible Friedreich's ataxia as the patient does have significant family history and is presenting with tremors as well as psychotic symptoms. -Psychoeducation and supportive therapy provided to patient. Risks and benefits of pharmacological treatment versus the risks and benefits of nontreatment weight and discussed. Informed consent discussion held. Common side effects of psychotropics discussed such as, but not limited to headache, GI disturbance, sexual dysfunction, movement disorders, sedation, and orthostatic hypotension. Life threatening and blackbox warnings of prescribed medications also discussed. Potential risks of operating a vehicle or heavy machinery discussed with js nt at length. Advised on importance of compliance and a reliable and responsible manner. Patient advised to review FDA consumer labeling of all medications prior to taking. Patient verbalized understanding of potential risks, and agrees with current treatment plan. Patient advised to medically contact physician/emergency personnel if any acute changes in condition occur. Allergies Allergy/AdvReac Type Severity Reaction Status Date / Time No Known Allergies Allergy Unverified 11/27/21 12:42 Laboratory Results WBC 6.8 k/uL (3.8-10.6) 11/28/21 07:12 RBC 5.03 m/uL (4.30-5.90) 11/28/21 07:12 Hgb 15.9 gm/dL (13.0-17.5) 11/28/21 07:12 Hct 47.5 % (39.0-53.0) 11/28/21 07:12 MCV 94.6 fL (80.0-100.0) 11/28/21 07:12 MCH 31.6 pg (25.0-35.0) 11/28/21 07:12 MCHC 33.5 g/dL (31.0-37.0) 11/28/21 07:12 RDW 12.6 % (11.5-15.5) 11/28/21 07:12 Plt Count 261 k/uL (150-450) 11/28/21 07:12 MPV 8.0 11/28/21 07:12 Neutrophils % 65 % 11/28/21 07:12 Lymphocytes % 25 % 11/28/21 07:12 Monocytes % 6 % 11/28/21 07:12 Eosinophils % 3 % 11/28/21 07:12 Basophils % 1 % 11/28/21 07:12 Neutrophils # 4.4 k/uL (1.3-7.7) 11/28/21 07:12 Lymphocytes # 1.7 k/uL (1.0-4.8) 11/28/21 07:12 Monocytes # 0.4 k/uL (0-1.0) 11/28/21 07:12 Eosinophils # 0.2 k/uL (0-0.7) 11/28/21 07:12 Basophils # 0.1 k/uL (0-0.2) 11/28/21 07:12 Sodium 144 mmol/L (137-145) 11/28/21 07:12 Potassium 4.6 mmol/L (3.5-5.1) 11/28/21 07:12 Chloride 109 mmol/L (98-107) H 11/28/21 07:12 Carbon Dioxide 27 mmol/L (22-30) 11/28/21 07:12 Anion Gap 8 mmol/L 11/28/21 07:12 BUN 15 mg/dL (9-20) 11/28/21 07:12 Creatinine 0.87 mg/dL (0.66-1.25) 11/28/21 07:12 Est GFR (CKD-EPI)AfAm >90 (>60 ml/min/1.73 sqM) 11/28/21 07:12 Est GFR (CKD-EPI)NonAf >90 (>60 ml/min/1.73 sqM) 11/28/21 07:12 Glucose 91 mg/dL (74-99) 11/28/21 07:[address] Glu mg/dL 123 11/28/21 07:12 Hemoglobin A1c 5.9 % (4.0-6.0) 11/28/21 07:12 Calcium 10.1 mg/dL (8.4-10.2) 11/28/21 07:12 Total Bilirubin 0.6 mg/dL (0.2-1.3) 11/28/21 07:12 AST 33 U/L (17-59) 11/28/21 07:12 ALT 17 U/L (4-49) 11/28/21 07:12 Alkaline Phosphatase 88 U/L (38-126) 11/28/21 07:12 Total Protein 7.4 g/dL (6.3-8.2) 11/28/21 07:12 Albumin 4.5 g/dL (3.5-5.0) 11/28/21 07:12 Triglycerides 266.00 mg/dL (0.00-149.00) H 11/28/21 07:12 Cholesterol 183.00 mg/dL (0.00-200.00) 11/28/21 07:12 LDL Cholesterol, Calc 103.9 mg/dL (0.0-131.0) 11/28/21 07:12 VLDL Cholesterol, Calc 53.20 mg/dL (5.00-40.00) H 11/28/21 07:12 HDL Cholesterol 25.90 mg/dL (40.00-60.00) L 11/28/21 07:12 Cholesterol/HDL Ratio 7.07 Ratio 11/28/21 07:12 TSH 0.711 mIU/L (0.465-4.680) 11/28/21 07:12 Urine Opiates Screen Not Detected (NotDetected) 11/29/21 16:01 Ur Oxycodone Screen Not Detected (NotDetected) 11/29/21 16:01 Urine Methadone Screen Not Detected (NotDetected) 11/29/21 16:01 Ur Propoxyphene Screen Not Detected (NotDetected) 11/29/21 16:01 Ur Barbiturates Screen Not Detected (NotDetected) 11/29/21 16:01 U Tricyclic Antidepress Not Detected (NotDetected) 11/29/21 16:01 Ur Phencyclidine Scrn Not Detected (NotDetected) 11/29/21 16:01 Ur Amphetamines Screen Not Detected (NotDetected) 11/29/21 16:01 U Methamphetamines Scrn Not Detected (NotDetected) 11/29/21 16:01 U Benzodiazepines Scrn Detected (NotDetected) H 11/29/21 16:01 Urine Cocaine Screen Not Detected (NotDetected) 11/29/21 16:01 U Marijuana (THC) Screen Not Detected (NotDetected) 11/29/21 16:01 Coronavirus (PCR) Not Detected (Not Detectd) 11/27/21 14:22 Patient Condition at Discharge: Stable Plan - Discharge Summary Discharge Rx Participant: No New Discharge Prescriptions: New lamoTRIgine [LaMICtal] 50 mg PO DAILY #30 tab lamoTRIgine [LaMICtal] 100 mg PO HS #30 tab Sertraline [Zoloft] 150 mg PO HS 30 Days tab Benztropine Mesylate [Cogentin] 0.5 mg PO BID 30 Days tab fluPHENAZine [Prolixin] 5 mg PO BID 30 Days tab Continue Albuterol Sulfate [Proventil Hfa] 2 puff INHALATION RT-Q4H PRN PRN Reason: asthma Atorvastatin [Lipitor] 10 mg PO HS Budesonide/Formoterol Fumarate [Symbicort 80-4.5 Mcg Inhaler] 2 puff INHALATION RT-BID Discontinued hydrOXYzine pamoate [Vistaril] 100 mg PO TID PRN PRN Reason: Anxiety lamoTRIgine [LaMICtal] 50 mg PO DAILY Sertraline [Zoloft] 150 mg PO HS lamoTRIgine [LaMICtal] 100 mg PO HS Discharge Medication List Albuterol Sulfate [Proventil Hfa] 2 puff INHALATION RT-Q4H PRN 11/27/21 [History] Atorvastatin [Lipitor] 10 mg PO HS 11/27/21 [History] Budesonide/Formoterol Fumarate [Symbicort 80-4.5 Mcg Inhaler] 2 puff INHALATION RT-BID 11/27/21 [History] Benztropine Mesylate [Cogentin] 0.5 mg PO BID 30 Days tab 12/04/21 [Rx] Sertraline [Zoloft] 150 mg PO HS 30 Days tab 12/04/21 [Rx] fluPHENAZine [Prolixin] 5 mg PO BID 30 Days tab 12/04/21 [Rx] lamoTRIgine [LaMICtal] 50 mg PO DAILY #30 tab 12/04/21 [Rx] lamoTRIgine [LaMICtal] 100 mg PO HS #30 tab 12/04/21 [Rx] Follow up Appointment(s)/Referral(s): [facility] [Outside] - 12/08/21 1:00 pm (12-08-21 at 1:00 with Johanna Sepulveda at [place] [facility] 12-13-21 at 9:00 with CUAUHTEMOC Cross at [place] [facility]) [facility] [NON-STAFF] - 1 Week Patient Instructions/Handouts: Depression (DC) Activity/Diet/Wound Care/Special Instructions: Activity and diet as tolerated. Avoid the use of street drugs and alcohol. Take all medications as prescribed. When you are in need of refills on your medications please contact your medical provider and/or outpatient psychiatrist to have this done. Please go to scheduled outpatient appointment for aftercare treatment. If symptoms return or become worse, call the crisis line at [phone] and/or go to the nearest emergency room for evaluation Discharge Disposition: HOME SELF-CARE
== END 2021-12-04 14:34 | disposition home or self-care (01) | DRG 885 ==
LOC: EC 11:51 → 3MHU 17:29
PROVIDERS: ADMIT Psychiatry & Neurology Psychiatry; ATTEND Psychiatry & Neurology Psychiatry
DX: F25.0 Schizoaffective disorder, bipolar type (principal); R45.851 Suicidal ideations; F12.10 Cannabis abuse, uncomplicated; F17.200 Nicotine dependence, unspecified, uncomplicated; F41.9 Anxiety disorder, unspecified; K59.00 Constipation, unspecified; S61.219A Laceration without foreign body of unspecified finger without damage to nail, initial encounter; Z56.0 Unemployment, unspecified; Z79.51 Long term (current) use of inhaled steroids; Z79.899 Other long term (current) drug therapy; Z20.822 Contact with and (suspected) exposure to COVID-19
CPT/HCPCS: 80053; 80061; 80306; 82075; 83036; 84443; 85025; 87635; 99285

== ENCOUNTER 2021-12-24 12:17 | Emergency (ER) | payer BC ==
[2021-12-24 12:32] VITALS: BP 153/93; PULSE 65; RESP 20; TEMP 98.4
[2021-12-24] MEDS ORDERED: SODIUM CHLORIDE 0.9% 1,000 ML IV STA (12:51)
[2021-12-24 13:26] LABS: Basophils # (A) 0.1 k/uL (0-0.2); Basophils % (A) 0 %; Eosinophils # (A) 0.1 k/uL (0-0.7); Eosinophils % (A) 1 %; HCT 43.3 % (39.0-53.0); Lymphocytes # (A) 1.3 k/uL (1.0-4.8); Lymphocytes % (A) 10 %; MCH 31.5 pg (25.0-35.0); MCHC 34.6 g/dL (31.0-37.0); MCV 90.9 fL (80.0-100.0); Mean Platelet Volume 8.4; Monocytes # (A) 0.5 k/uL (0-1.0); Monocytes % (A) 4 %; Neutrophils # (A) 11.5 k/uL (1.3-7.7); Neutrophils % (A) 85 %; Platelet Count 208 k/uL (150-450); RBC 4.76 m/uL (4.30-5.90); RDW 12.5 % (11.5-15.5); WBC 13.5 k/uL (3.8-10.6)
[2021-12-24] MEDS ORDERED: HYDROmorphone 0.5 MG/0.5 ML SYRINGE IVP STA ×2 (13:27→15:51)
[2021-12-24 13:40] LABS: ALT 22 U/L (4-49); AST 21 U/L (17-59); African American GFR (CKD) >90 (>60 ml/min/1.73 sqM); Albumin 4.4 g/dL (3.5-5.0); Alkaline Phosphatase 74 U/L (38-126); Amylase 44 U/L (30-110); Anion Gap 10 mmol/L; Blood Urea Nitrogen 5 mg/dL (9-20); Calcium 9.6 mg/dL (8.4-10.2); Carbon Dioxide 23 mmol/L (22-30); Chloride 98 mmol/L (98-107); Glucose 109 mg/dL (74-99); Lipase 36 U/L (23-300); Non-African American GFR(CKD) >90 (>60 ml/min/1.73 sqM); Potassium 4.1 mmol/L (3.5-5.1); Sodium 131 mmol/L (137-145); Total Bilirubin 0.3 mg/dL (0.2-1.3); Total Protein 6.8 g/dL (6.3-8.2)
[2021-12-24] MEDS ORDERED: ONDANSETRON 4 MG/2 ML VIAL IVP STA (13:48)
--- NOTE | 2021-12-24 14:06 | ED ---
General Adult HPI - General Chief complaint: Abdominal Pain Stated complaint: abd pain Time Seen by Provider: 12/24/21 12:31 Source: patient, RN notes reviewed Mode of arrival: ambulatory Limitations: no limitations - History of Present Illness Initial comments: 41-year-old male without any significant past medical history presents to the emergency room for chief complaint of abdominal pain. Patient has had abdominal pain since last night. States it is in the right upper quadrant. Patient states he does have a history of gallstones. However today the pain worsened. States he has been vomiting through the day. He did have several episodes of diarrhea last night. He has not had any fevers. He did not follow-up for his gallstones in the past.Patient has no other complaints at this time including shortness of breath, chest pain, headache, or visual changes. - Related Data Home Medications Medication Instructions Recorded Confirmed Albuterol Sulfate [Proventil Hfa] 2 puff INHALATION RT-Q4H PRN 11/27/21 12/24/21 Atorvastatin [Lipitor] 10 mg PO HS 11/27/21 12/24/21 Budesonide/Formoterol Fumarate 2 puff INHALATION RT-BID 11/27/21 12/24/21 [Symbicort 80-4.5 Mcg Inhaler] Sertraline [Zoloft] 200 mg PO HS 12/24/21 12/24/21 hydrOXYzine pamoate [Vistaril] 50 - 100 mg PO TID PRN 12/24/21 12/24/21 Previous Rx's Medication Instructions Recorded Benztropine Mesylate [Cogentin] 0.5 mg PO BID 30 Days tab 12/04/21 fluPHENAZine [Prolixin] 5 mg PO BID 30 Days tab 12/04/21 lamoTRIgine [LaMICtal] 50 mg PO DAILY #30 tab 12/04/21 lamoTRIgine [LaMICtal] 100 mg PO HS #30 tab 12/04/21 Allergies Allergy/AdvReac Type Severity Reaction Status Date / Time No Known Allergies Allergy Verified 12/24/21 13:57 Review of Systems ROS Statement: Those systems with pertinent positive or pertinent negative responses have been documented in the HPI. ROS Other: All systems not noted in ROS Statement are negative. Past Medical History Past Medical History: No Reported History History of Any Multi-Drug Resistant Organisms: None Reported Past Surgical History: Hernia Repair Past Anesthesia/Blood Transfusion Reactions: No Reported Reaction Past Psychological History: Bipolar, PTSD, Schizoaffective Disorder Smoking Status: Current every day smoker Past Alcohol Use History: Rare Past Drug Use History: None Reported General Exam Limitations: no limitations General appearance: alert, in no apparent distress Head exam: Present: atraumatic Eye exam: Present: normal appearance, PERRL, EOMI. Absent: scleral icterus, conjunctival injection ENT exam: Present: normal exam, mucous membranes moist Neck exam: Present: normal inspection, full ROM. Absent: tenderness Respiratory exam: Present: normal lung sounds bilaterally. Absent: respiratory distress, wheezes Cardiovascular Exam: Present: regular rate, normal rhythm, normal heart sounds GI/Abdominal exam: Present: soft, tenderness (tenderness with guarding in the right upper quadrant. No lower abdominal tenderness. No left upper quadrant tenderness.), guarding, normal bowel sounds. Absent: distended Course Vital Signs 12/24/21 12:28 Temperature 98.4 F Pulse Rate 65 Respiratory 20 Rate Blood Pressure 153/93 O2 Sat by Pulse 96 Oximetry Medical Decision Making - Medical Decision Making Vitals are stable. Patient is well-appearing. Patient does have right upper quadrant tenderness. No lower abdominal or left upper quadrant tenderness. CMP unremarkable. Mild hyponatremia, replaced with normal saline. Lactic acid is normal. COVID-19 is negative. Ultrasound of the gallbladder show multiple gallstones with a gallstone at the gallbladder neck. No dilated ducts. Recommended admission to the patient however patient strongly prefers to be discharged home. He states he would rather follow up outpatient. I did discuss his case with Dr. Coates who can see the patient on Saturday at 1:00. Patient will return here for any worsening symptoms such as worsening pain fevers. - Lab Data Result diagrams: 12/24/21 13:15 12/24/21 13:15 Lab Results 12/24/21 12/24/21 12/24/21 Range/Units 13:15 13:15 13:15 WBC 13.5 H (3.8-10.6) k/uL RBC 4.76 (4.30-5.90) m/uL Hgb 15.0 (13.0-17.5) gm/dL Hct 43.3 (39.0-53.0) % MCV 90.9 (80.0-100.0) fL MCH 31.5 (25.0-35.0) pg MCHC 34.6 (31.0-37.0) g/dL RDW 12.5 (11.5-15.5) % Plt Count 208 (150-450) k/uL MPV 8.4 Neutrophils % 85 % Lymphocytes % 10 % Monocytes % 4 % Eosinophils % 1 % Basophils % 0 % Neutrophils # 11.5 H (1.3-7.7) k/uL Lymphocytes # 1.3 (1.0-4.8) k/uL Monocytes # 0.5 (0-1.0) k/uL Eosinophils # 0.1 (0-0.7) k/uL Basophils # 0.1 (0-0.2) k/uL Sodium 131 L (137-145) mmol/L Potassium 4.1 (3.5-5.1) mmol/L Chloride 98 (98-107) mmol/L Carbon Dioxide 23 (22-30) mmol/L Anion Gap 10 mmol/L BUN 5 L (9-20) mg/dL Creatinine 0.61 L (0.66-1.25) mg/dL Est GFR (CKD-EPI)AfAm >90 (>60 ml/min/1.73 sqM) Est GFR (CKD-EPI)NonAf >90 (>60 ml/min/1.73 sqM) Glucose 109 H (74-99) mg/dL Plasma Lactic Acid Serafin (0.7-2.0) mmol/L Calcium 9.6 (8.4-10.2) mg/dL Total Bilirubin 0.3 (0.2-1.3) mg/dL AST 21 (17-59) U/L ALT 22 (4-49) U/L Alkaline Phosphatase 74 (38-126) U/L Total Protein 6.8 (6.3-8.2) g/dL Albumin 4.4 (3.5-5.0) g/dL Amylase 44 (30-110) U/L Lipase 36 (23-300) U/L Coronavirus (PCR) Not Detected (Not Detectd) 12/24/21 Range/Units 13:49 WBC (3.8-10.6) k/uL RBC (4.30-5.90) m/uL Hgb (13.0-17.5) gm/dL Hct (39.0-53.0) % MCV (80.0-100.0) fL MCH (25.0-35.0) pg MCHC (31.0-37.0) g/dL RDW (11.5-15.5) % Plt Count (150-450) k/uL MPV Neutrophils % % Lymphocytes % % Monocytes % % Eosinophils % % Basophils % % Neutrophils # (1.3-7.7) k/uL Lymphocytes # (1.0-4.8) k/uL Monocytes # (0-1.0) k/uL Eosinophils # (0-0.7) k/uL Basophils # (0-0.2) k/uL Sodium (137-145) mmol/L Potassium (3.5-5.1) mmol/L Chloride (98-107) mmol/L Carbon Dioxide (22-30) mmol/L Anion Gap mmol/L BUN (9-20) mg/dL Creatinine (0.66-1.25) mg/dL Est GFR (CKD-EPI)AfAm (>60 ml/min/1.73 sqM) Est GFR (CKD-EPI)NonAf (>60 ml/min/1.73 sqM) Glucose (74-99) mg/dL Plasma Lactic Acid Serafin 2.0 (0.7-2.0) mmol/L Calcium (8.4-10.2) mg/dL Total Bilirubin (0.2-1.3) mg/dL AST (17-59) U/L ALT (4-49) U/L Alkaline Phosphatase (38-126) U/L Total Protein (6.3-8.2) g/dL Albumin (3.5-5.0) g/dL Amylase (30-110) U/L Lipase (23-300) U/L Coronavirus (PCR) (Not Detectd) Disposition Clinical Impression: Cholelithiasis Disposition: HOME SELF-CARE Condition: Good Instructions (If sedation given, give patient instructions): Biliary Colic (ED), Low Fat Diet (ED) Additional Instructions: Please take Motrin and Tylenol for pain. Drink plenty of fluids. Stick to a low-fat diet. Follow up with Dr. Coates at 1:00 on Saturday. Return to the emergency room for any worsening symptoms. Is patient prescribed a controlled substance at d/c from ED?: No Referrals: Tsering Zimmerman DO [Primary Care Provider] - 1-2 days Terrance Coates MD [STAFF PHYSICIAN] - 1-2 days Time of Disposition: 16:25
--- NOTE | 2021-12-24 14:51 | US ---
EXAMINATION TYPE: US gallbladder DATE OF EXAM: 12/24/2021 COMPARISON: NONE CLINICAL HISTORY: pain. RUQ pain, patient states known gallstones. EXAM MEASUREMENTS: Liver Length: 16.0 cm Gallbladder Wall: 0.2 cm CBD: 0.4 cm Right Kidney: 12.0 x 6.7 x 6.9 cm no focal liver defect. Pancreas: visualized portions wnl Liver: wnl Gallbladder: multiple mobile stones with shadowing, there is a stone near neck that does not move wi th multiple patient positions. Evidence for sonographic Cramer's sign: Yes CBD: wnl Right Kidney: No hydronephrosis or masses seen IMPRESSION: Multiple gallstones. No dilated ducts. There is gallstone at the gallbladder neck.
== END 2021-12-24 17:14 | disposition home or self-care (01) ==
LOC: EC 12:17
DX: K80.20 Calculus of gallbladder without cholecystitis without obstruction (principal); F17.200 Nicotine dependence, unspecified, uncomplicated; Z20.822 Contact with and (suspected) exposure to COVID-19
CPT/HCPCS: 36415; 80053; 82150; 83605; 83690; 85025; 87635; 76705; 99284; 96374; 96375; 96376; J2405; J1170

== ENCOUNTER 2022-03-25 12:33 | Inpatient (IN) | payer BC ==
[2022-03-25] MEDS ORDERED: predniSONE 20 MG TAB PO STA (13:14)
[2022-03-25] MEDS ORDERED: LORazepam 1 MG TAB PO STA (13:14)
[2022-03-25] MEDS ORDERED: ALBUTEROL HFA INHALER INHALATION STA ×2 (13:14→15:53)
[2022-03-25 13:27] LABS: Basophils # (A) 0.1 k/uL (0-0.2); Basophils % (A) 2 %; Eosinophils # (A) 0.1 k/uL (0-0.7); Eosinophils % (A) 2 %; HCT 48.5 % (39.0-53.0); HGB 16.3 gm/dL (13.0-17.5); Lymphocytes # (A) 1.9 k/uL (1.0-4.8); Lymphocytes % (A) 23 %; MCH 30.4 pg (25.0-35.0); MCHC 33.7 g/dL (31.0-37.0); MCV 90.3 fL (80.0-100.0); Mean Platelet Volume 7.6; Monocytes # (A) 0.5 k/uL (0-1.0); Monocytes % (A) 6 %; Neutrophils # (A) 5.5 k/uL (1.3-7.7); Neutrophils % (A) 66 %; Platelet Count 292 k/uL (150-450); RBC 5.37 m/uL (4.30-5.90); RDW 13.4 % (11.5-15.5); WBC 8.2 k/uL (3.8-10.6)
[2022-03-25 13:37] LABS: Acetaminophen <10.0 ug/mL; African American GFR (CKD) >90 (>60 ml/min/1.73 sqM); Alcohol <10 mg/dL; Anion Gap 11 mmol/L; Blood Urea Nitrogen 6 mg/dL (9-20); Calcium 9.6 mg/dL (8.4-10.2); Carbon Dioxide 20 mmol/L (22-30); Chloride 107 mmol/L (98-107); Glucose 96 mg/dL (74-99); Non-African American GFR(CKD) >90 (>60 ml/min/1.73 sqM); Potassium 3.8 mmol/L (3.5-5.1); Salicylate <1.0 mg/dL; Sodium 138 mmol/L (137-145)
--- NOTE | 2022-03-25 14:23 | XR ---
EXAMINATION TYPE: XR chest 1V portable DATE OF EXAM: 03/25/2022 2:08 PM COMPARISON: None TECHNIQUE: XR chest 1V portable Frontal view of the chest. CLINICAL INDICATION:Male, 41 years old with history of cough; FINDINGS: Lungs/Pleura: There is no evidence of pleural effusion, focal consolidation, or pneumothorax. Pulmonary vascularity: Unremarkable. Heart/mediastinum: Cardiomediastinal silhouette is unremarkable. Musculoskeletal: No acute osseous pathology. IMPRESSION: No acute cardiopulmonary disease/process.
--- NOTE | 2022-03-25 16:23 | ED ---
General Adult HPI - General Chief complaint: Psychiatric Symptoms Stated complaint: Mental Health Time Seen by Provider: 03/25/22 12:55 Source: patient, family, RN notes reviewed, old records reviewed Mode of arrival: wheelchair Limitations: no limitations - History of Present Illness Initial comments: Patient is a 41-year-old male with past medical history of "mental breakdowns" presents emergency department with his are concerned for mental breakdowns. Is a history of COPD and is on inhalers at home. Has been having some mild wheezing. Mild nonproductive cough. This typical for him. No fevers or chills. No chest pain. No abdominal pain. No nausea or vomiting. Endorses hearing voices but refuses discuss with her same. Denies any homicidal or suicidal ideations, attempts, plans. Symptoms have been ongoing for the last 1 or 2 weeks. He seems to be having hallucinations, possible delusions. Patient is wants him evaluated. He has required psychiatric admission previously. He presented screaming in his room, however he did calm down with verbal direction from staff as well as his . - Related Data Home Medications Medication Instructions Recorded Confirmed Albuterol Sulfate [Proventil Hfa] 2 puff INHALATION RT-Q6H PRN 11/27/21 03/25/22 Sertraline [Zoloft] 200 mg PO HS 12/24/21 03/25/22 hydrOXYzine pamoate [Vistaril] 50 mg PO DAILY 12/24/21 03/25/22 Fenofibrate Nanocrystallized 145 mg PO DAILY 03/25/22 03/25/22 [Fenofibrate] Fluticasone Propion/Salmeterol 1 puff INHALATION RT-BID 03/25/22 03/25/22 [Wixela 250-50 Inhub] Primidone [Mysoline] 100 mg PO HS 03/25/22 03/25/22 cloNIDine HCL 0.2 mg PO HS 03/25/22 03/25/22 hydrOXYzine pamoate [Vistaril] 100 mg PO HS 03/25/22 03/25/22 lamoTRIgine [LaMICtal] 100 mg PO DAILY 03/25/22 03/25/22 Previous Rx's Medication Instructions Recorded lamoTRIgine [LaMICtal] 50 mg PO DAILY #30 tab 12/04/21 Allergies Allergy/AdvReac Type Severity Reaction Status Date / Time No Known Allergies Allergy Verified 03/25/22 12:40 Review of Systems ROS Statement: Those systems with pertinent positive or pertinent negative responses have been documented in the HPI. Review of Systems: CONST: Denies fever EYES: Denies blurry vision ENT: Denies nasal congestion C/V: Denies Chest pain RESP: Endorses wheezing GI: Denies abdominal pain : Denies dysuria SKIN: Denies rash. MSK: Denies joint pain. NEURO: Denies headache PSYCH: Denies suicidal and homicidal ideations/plans/attempts. Endorses auditory hallucinations ROS Other: All systems not noted in ROS Statement are negative. Past Medical History Past Medical History: No Reported History History of Any Multi-Drug Resistant Organisms: None Reported Past Surgical History: Hernia Repair Past Anesthesia/Blood Transfusion Reactions: No Reported Reaction Past Psychological History: Bipolar, PTSD, Schizoaffective Disorder Smoking Status: Current every day smoker Past Alcohol Use History: Rare Past Drug Use History: None Reported General Exam - General Exam Comments Initial Comments: General: Appears in no acute distress. HEAD: Normal with no signs of head trauma. EYES: PERRLA, EOMI, conjunctiva normal, no discharge. ENT: Hearing grossly intact, normal oropharynx. RESPIRATORY: Bilateral mild end expiratory wheezing. No hypoxia. No increased work of breathing. C/V: Regular rate and rhythm. S1 and S2 auscultated, no edema, peripheral pulses 2+ and intact throughout ABD: Abd is soft, nontender, nondistended EXT: Normal range of motion, no obvious deformity SKIN: No rashes or lesions observed on exposed skin. NEURO: Alert and oriented 4. Limitations: no limitations Course Vital Signs 03/25/22 03/25/22 03/25/22 12:36 16:16 19:00 Temperature 98.1 F Pulse Rate 139 H 75 91 Respiratory 32 H 16 16 Rate Blood Pressure 134/75 134/89 O2 Sat by Pulse 96 98 94 L Oximetry Medical Decision Making - Medical Decision Making Based on the patient's presentation and physical exam, I would like to obtain basic laboratory studies as well as Covid swab and chest x-ray for the patient's current symptoms. It does appear he is having a COPD exacerbation. He'll be treated with steroids as well as breathing treatment. He was in agreement this plan. He has agreed to take Ativan to calm his nerves. Alcohol level and UDS will also be obtained. Sitter ordered was placed. He was placed in green scrubs. He does require evaluation for acute psychosis. and patient were in agreement this plan. Laboratory studies were relatively unremarkable. Patient's Covid negative. Chest x-ray showed no acute cardiopulmonary process. On reevaluation, wheezing is slightly improved. I do believe he is medically cleared at this time. Alcohol level is negative. EPS is notified. Disposition is pending psychiatric evaluation. Vital signs remained within normal limits stable at this time. EPS evaluated the patient. Determined that he meets inpatient psychiatric criteria. Certification was completed by myself. Patient will be admitted to inpatient psychiatry. EKG was obtained as the patient became acutely sweaty but he was also tensing up and anxious in the room. Showed no signs of acute ischemia. Blood sugar at the time also was within normal limits. Symptoms resolved. We'll continue his prednisone while he is admitted. - Lab Data Result diagrams: 03/25/22 13:19 03/25/22 13:19 Lab Results 03/25/22 03/25/22 03/25/22 Range/Units 13:19 13:19 13:19 WBC 8.2 (3.8-10.6) k/uL RBC 5.37 (4.30-5.90) m/uL Hgb 16.3 (13.0-17.5) gm/dL Hct 48.5 (39.0-53.0) % MCV 90.3 (80.0-100.0) fL MCH 30.4 (25.0-35.0) pg MCHC 33.7 (31.0-37.0) g/dL RDW 13.4 (11.5-15.5) % Plt Count 292 (150-450) k/uL MPV 7.6 Neutrophils % 66 % Lymphocytes % 23 % Monocytes % 6 % Eosinophils % 2 % Basophils % 2 % Neutrophils # 5.5 (1.3-7.7) k/uL Lymphocytes # 1.9 (1.0-4.8) k/uL Monocytes # 0.5 (0-1.0) k/uL Eosinophils # 0.1 (0-0.7) k/uL Basophils # 0.1 (0-0.2) k/uL Sodium 138 (137-145) mmol/L Potassium 3.8 (3.5-5.1) mmol/L Chloride 107 (98-107) mmol/L Carbon Dioxide 20 L (22-30) mmol/L Anion Gap 11 mmol/L BUN 6 L (9-20) mg/dL Creatinine 0.96 (0.66-1.25) mg/dL Est GFR (CKD-EPI)AfAm >90 (>60 ml/min/1.73 sqM) Est GFR (CKD-EPI)NonAf >90 (>60 ml/min/1.73 sqM) Glucose 96 (74-99) mg/dL POC Glucose (mg/dL) (75-99) mg/dL POC Glu Grocery Specialist ID Calcium 9.6 (8.4-10.2) mg/dL Salicylates <1.0 mg/dL Acetaminophen <10.0 ug/mL Serum Alcohol <10 mg/dL Coronavirus (PCR) Not Detected (Not Detectd) 03/25/22 Range/Units 18:41 WBC (3.8-10.6) k/uL RBC (4.30-5.90) m/uL Hgb (13.0-17.5) gm/dL Hct (39.0-53.0) % MCV (80.0-100.0) fL MCH (25.0-35.0) pg MCHC (31.0-37.0) g/dL RDW (11.5-15.5) % Plt Count (150-450) k/uL MPV Neutrophils % % Lymphocytes % % Monocytes % % Eosinophils % % Basophils % % Neutrophils # (1.3-7.7) k/uL Lymphocytes # (1.0-4.8) k/uL Monocytes # (0-1.0) k/uL Eosinophils # (0-0.7) k/uL Basophils # (0-0.2) k/uL Sodium (137-145) mmol/L Potassium (3.5-5.1) mmol/L Chloride (98-107) mmol/L Carbon Dioxide (22-30) mmol/L Anion Gap mmol/L BUN (9-20) mg/dL Creatinine (0.66-1.25) mg/dL Est GFR (CKD-EPI)AfAm (>60 ml/min/1.73 sqM) Est GFR (CKD-EPI)NonAf (>60 ml/min/1.73 sqM) Glucose (74-99) mg/dL POC Glucose (mg/dL) 141 H (75-99) mg/dL POC Glu Grocery Specialist ID Sydney Rueda Calcium (8.4-10.2) mg/dL Salicylates mg/dL Acetaminophen ug/mL Serum Alcohol mg/dL Coronavirus (PCR) (Not Detectd) - EKG Data -: EKG Interpreted by Me EKG Comments: 12-lead Electrocardiogram Interpretation Note EKG was reviewed and interpreted by myself. 12-lead ECG performed at 1842 is interpreted by me as revealing normal sinus rhythm at a rate of 95 beats per minute. [place] is normal. RI Intervals 136 ms, QRS duration is 94 ms, QTc is 375 ms.. There were no ST or T wave abnormalities to suggest myocardial ischemia or injury. R wave progression across the precordium was satisfactory. By my i nterpretation this EKG is non-diagnostic for acute ischemia. Disposition Clinical Impression: Acute psychosis, COPD exacerbation, Encounter for psychiatric assessment Disposition: ADMITTED IP TO THIS HOSP Condition: Stable
[2022-03-25 18:42] LABS: Glucose,Whole Blood 141 mg/dL (75-99)
[2022-03-25] MEDS ORDERED: HALOPERIDOL LACTATE 5 MG/ML 1 ML VIAL IM PRN (21:36)
[2022-03-25] MEDS ORDERED: MAGNESIUM HYDROXIDE 2,400 MG/10 ML CUP PO PRN (21:36)
[2022-03-25] MEDS ORDERED: LORazepam 1 MG TAB PO PRN (21:36)
[2022-03-25] MEDS ORDERED: MAG HYDROX/AL HYDROX/SIMETH 30 ML CUP PO PRN (21:36)
[2022-03-25] MEDS ORDERED: ACETAMINOPHEN TAB 325 MG TAB PO PRN (21:36)
[2022-03-25] MEDS ORDERED: LORazepam 2 MG/ML INJ IM PRN (21:40)
[2022-03-25] MEDS ORDERED: haloperidoL 5 MG TAB PO PRN (21:40)
[2022-03-25] MEDS ORDERED: OLANZapine 5 MG TAB PO SCH (22:00)
[2022-03-25] MEDS: SERTRALINE 100 MG TAB PO SCH (22:31)
[2022-03-25] MEDS: hydrOXYzine pamoate 25 MG CAP PO SCH (22:33)
[2022-03-25] MEDS: cloNIDine HCL 0.2 MG TAB PO SCH (22:33)
[2022-03-25] MEDS: PRIMIDONE 50 MG TAB PO SCH (22:33)
--- NOTE | 2022-03-26 12:07 | P.HP ---
Psychiatric H&P - . H&P Date: 03/26/22 History & Physical: Allergies Allergy/AdvReac Type Severity Reaction Status Date / Time No Known Allergies Allergy Verified 03/26/22 00:58 Vital Signs Temp 97.5 F L 03/25/22 21:55 Pulse 89 03/25/22 21:55 Resp 18 03/25/22 21:55 BP 119/94 03/25/22 21:55 Pulse Ox 95 03/25/22 21:55 Intake & Output 03/25/22 03/26/22 03/26/22 18:59 06:59 18:59 Weight 84.822 kg 80.68 kg Laboratory Last Values WBC 8.2 k/uL (3.8-10.6) 03/25/22 13:19 RBC 5.37 m/uL (4.30-5.90) 03/25/22 13:19 Hgb 16.3 gm/dL (13.0-17.5) 03/25/22 13:19 Hct 48.5 % (39.0-53.0) 03/25/22 13:19 MCV 90.3 fL (80.0-100.0) 03/25/22 13:19 MCH 30.4 pg (25.0-35.0) 03/25/22 13:19 MCHC 33.7 g/dL (31.0-37.0) 03/25/22 13:19 RDW 13.4 % (11.5-15.5) 03/25/22 13:19 Plt Count 292 k/uL (150-450) 03/25/22 13:19 MPV 7.6 03/25/22 13:19 Neutrophils % 66 % 03/25/22 13:19 Lymphocytes % 23 % 03/25/22 13:19 Monocytes % 6 % 03/25/22 13:19 Eosinophils % 2 % 03/25/22 13:19 Basophils % 2 % 03/25/22 13:19 Neutrophils # 5.5 k/uL (1.3-7.7) 03/25/22 13:19 Lymphocytes # 1.9 k/uL (1.0-4.8) 03/25/22 13:19 Monocytes # 0.5 k/uL (0-1.0) 03/25/22 13:19 Eosinophils # 0.1 k/uL (0-0.7) 03/25/22 13:19 Basophils # 0.1 k/uL (0-0.2) 03/25/22 13:19 Sodium 138 mmol/L (137-145) 03/25/22 13:19 Potassium 3.8 mmol/L (3.5-5.1) 03/25/22 13:19 Chloride 107 mmol/L (98-107) 03/25/22 13:19 Carbon Dioxide 20 mmol/L (22-30) L 03/25/22 13:19 Anion Gap 11 mmol/L 03/25/22 13:19 BUN 6 mg/dL (9-20) L 03/25/22 13:19 Creatinine 0.96 mg/dL (0.66-1.25) 03/25/22 13:19 Est GFR (CKD-EPI)AfAm >90 (>60 ml/min/1.73 sqM) 03/25/22 13:19 Est GFR (CKD-EPI)NonAf >90 (>60 ml/min/1.73 sqM) 03/25/22 13:19 Glucose 96 mg/dL (74-99) 03/25/22 13:19 POC Glucose (mg/dL) 141 mg/dL (75-99) H 03/25/22 18:41 POC Glu Dish Carrier ID Sydney Rueda 03/25/22 18:41 Calcium 9.6 mg/dL (8.4-10.2) 03/25/22 13:19 TSH 1.610 mIU/L (0.465-4.680) 03/25/22 13:19 Salicylates <1.0 mg/dL 03/25/22 13:19 Acetaminophen <10.0 ug/mL 03/25/22 13:19 Serum Alcohol <10 mg/dL 03/25/22 13:19 Coronavirus (PCR) Not Detected (Not Detectd) 03/25/22 13:19 03/26/22 12:06 IDENTIFYING DATA: Patient is a , unemployed, 41-year-old male with significant history of schizoaffective disorder who [facility], brought in by his for paranoia and delusional thoughts. HPI: Patient presented to the hospital on 03/25/2022, brought into the hospital by his for increased paranoia and delusional thoughts. Upon assessment by the PES nurse, the patient was noted be very guarded and paranoid. He continued to report that "I lied and everyone in the [employer] ." He was also noted to be very tearful and stating that he messed up both him and his 's lives. He continued to appear to be very dysphoric and endorsing very bizarre paranoid thoughts including stating that "The federal government has seized everything." He did endorse auditory hallucinations however refused to expense of the EPS tremors. As per petition, "Jignesh has been hearing voices and not sleeping or eating. He is very paranoid and won't leave the house." Upon evaluation on the psychiatric unit, the patient continues to endorse significant paranoia and dysphoria. He reports that he has messed up severely and that he is going to such torment that he might as well kill himself. He does admit to suicidal ideation however does not verbalize any plan. He denies any homicidal ideation, intention, and/or plan. He does admit to auditory hallucinations however is vague and is unable to expand on what this entails however he does report that the auditory hallucinations have been causing him significant grief. He is denying any visual hallucinations. The patient reports that he has been having difficulty with sleep over the past week and a half. He reports that this is when his symptoms started. He was unable to identify any precipitating stressors. In regards to substance use, the patient reports that he rarely uses marijuana and states that his last time was approximately 2-3 weeks ago. He reports that he has increased his tobacco use to almost 2 packs per day over the past week because of his psychiatric symptoms. He denies any heavy alcohol use. The patient does admit that he has been using illicit Adderall. He reports that he is unable to recall how much Adderall he has been taking but he reports that he has been taking 20 mg strength Adderall multiple times per day. The patient was also administered prednisone in the emergency department for wheezing and COPD. PAST PSYCHIATRIC HISTORY: Patient has been diagnosed with schizoaffective disorder, bipolar type. He was last discharged on a regimen of Lamictal, Zoloft, Prolixin and Cogentin. His current home medications include the above- mentioned medications without the Prolixin and Cogentin. He was also started on clonidine 0.2 mg at bedtime. He has also been prescribed Vistaril for anxiety. The patient was last admitted onto our psychiatric unit from 11/27/21 to 12/04/21. Patient was discharged to follow-up with [facility]. He does report one prior attempt at suicide in the past. PMH: Past Medical History: No Reported History History of Any Multi-Drug Resistant Organisms: None Reported Past Surgical History: Hernia Repair Past Anesthesia/Blood Transfusion Reactions: No Reported Reaction Past Psychological History: Bipolar, PTSD, Schizoaffective Disorder Smoking Status: Current every day smoker Past Alcohol Use History: Rare Past Drug Use History: None Reported ALLERGIES: NO KNOWN DRUG ALLERGIES CHEMICAL DEPENDENCY HISTORY: as per HPI FAMILY PSYCHIATRIC/SUBSTANCE USE HISTORY: The patient is currently unable to provide any previous family psychiatric or substance abuse history. SOCIAL HISTORY: Patient . MENTAL STATUS EXAM: is currently to his Julissa for 14 years. They have 2 children ages 7 and 10. He is currently unemployed. General Appearance: Patient appears to be stated age is alert, directable, and attempts to cooperate. Patient appears to have poor hygiene and grooming. Behavior: Patient is lying down in his bed and refuses to make eye contact. Speech: Patient's speech is nonspontaneous, fluent, monotone. Mood/Affect: Patient reports their mood is "in torment." Affect is blunted and bizarre. Suicidality/Homicidality: Patient endorses suicidal ideation however denies any homicidal ideation. Perceptions: Patient denies any visual hallucinations but endorses auditory hallucinations. Thought content/process: The patient endorses significant paranoia and bizarre delusional thought content. His thought process appears to be dysphoric at this time. Memory and concentration: AOX3, grossly intact for the purposes of this session. Can spell "WORLD" backwards Judgment and insight: Very poor. STRENGTHS/WEAKNESSES: Strength is that the patient has a supportive and family. Weakness is that patient engages in illicit Adderall use precipitating psychosis. INTELLECT: average IMPRESSIONS: Schizoaffective disorder, bipolar type Stimulant use disorder Nicotine dependence Cannabis use disorder PLAN: -Patient is admitted under involuntary status to MHU for stabilization of psychiatric symptoms and safety. A second certification was completed and along with petition will be filed for court. -Medications : Will start patient on His home medications of clonidine 0.2 mg by mouth at bedtime, Vistaril 50 mg by mouth daily in the morning and 100 mg by mouth at bedtime, Lamictal 150 mg by mouth daily, Zoloft 200 mg by mouth daily. We will start Haldol 3 mg by mouth twice a day for psychosis. -Ativan and Haldol PRN for agitation/aggression -Patient was counselled on substance abuse and desired to cut back on use -Patient was informed of the risks, benefits and side effects of the medication and patient verbally consented to taking the medications. Patient signed med consent form and was placed in chart. -Internal Medicine consult to perform medical evaluation and physical. -NRT - nicotine patch -SW on board for discharge planning. Encourage patient to participate in groups to work on coping skills. 03/26/22 12:07
[2022-03-26] MEDS: hydrOXYzine pamoate 25 MG CAP PO SCH ×3 (16:24→22:22)
[2022-03-26] MEDS: FENOFIBRATE 160 MG TAB PO SCH (16:24)
[2022-03-26] MEDS: SYMBICORT 160-4.5 MCG INHALER INHALATION SCH ×2 (16:24→22:14)
[2022-03-26] MEDS: lamoTRIgine 100 MG TAB PO SCH (16:25)
[2022-03-26] MEDS: predniSONE 20 MG TAB PO SCH (16:25)
[2022-03-26] MEDS: NICOTINE 14MG/24HR PATCH TRANSDERM SCH (16:25)
[2022-03-26 18:20] LABS: Glucose,Whole Blood 83 mg/dL (75-99)
[2022-03-26] MEDS: SERTRALINE 100 MG TAB PO SCH (22:14)
[2022-03-26] MEDS: PRIMIDONE 50 MG TAB PO SCH ×2 (22:14→22:22)
[2022-03-26] MEDS: cloNIDine HCL 0.2 MG TAB PO SCH ×2 (22:15→22:22)
[2022-03-26] MEDS: haloperidoL 1 MG TAB PO SCH ×2 (22:16→22:21)
[2022-03-27 00:53] LABS: Chol/HDL Ratio 6.34 Ratio; LDL Cholesterol,Calculated 123.4 mg/dL (0.0-131.0)
[2022-03-27] MEDS: haloperidoL 1 MG TAB PO SCH ×2 (08:54→21:51)
[2022-03-27] MEDS: FENOFIBRATE 160 MG TAB PO SCH (08:54)
[2022-03-27] MEDS: SYMBICORT 160-4.5 MCG INHALER INHALATION SCH ×2 (08:54→21:50)
[2022-03-27] MEDS: hydrOXYzine pamoate 25 MG CAP PO SCH ×2 (08:55→21:51)
[2022-03-27] MEDS: lamoTRIgine 100 MG TAB PO SCH (08:55)
[2022-03-27] MEDS: predniSONE 20 MG TAB PO SCH (08:55)
[2022-03-27] MEDS: NICOTINE 14MG/24HR PATCH TRANSDERM SCH (08:55)
--- NOTE | 2022-03-27 11:36 | P.PN ---
Progress Note - Text Progress Note Date: 03/27/22 Interval History: Patient was seen resting in bed and was directable and agreeable to speak with the flex o writer operator in his room. The patient has been refusing his medications. When asked why he is not taking any medications, the patient states that he "just does not feel like it." He continues to endorse significant paranoia and auditory hallucinations. He continues to report that they are tormenting him however is not wishing to take any medications at this time. The patient is currently denying any suicidal or homicidal ideation. He reports difficulty with sleep and elevated anxiety. He denies any issues regarding his appetite. The patient was encouraged to take his medications however continues to refuse them at this time. Mental Status Exam: General Appearance: Patient appears to be stated age is alert, directable, and cooperative. Behavior: Patient is lying down in bed with minimal movement. Poor eye contact. Speech: Patient's speech is nonspontaneous, fluent, monotone. Mood/Affect: Mood is "tormented." Affect is blunted. Suicidality/Homicidality: Patient denies having any suicidal or homicidal ideation intent or plan. Perceptions: Patient denies any visual hallucinations but endorses auditory hallucination. Though content/process: Paranoid delusions are endorsed. Dysphoric thought process. Memory and concentration: AOX3, grossly intact for the purposes of this session Judgment and insight: Very poor. Vital Signs Temp 98.5 F 03/27/22 06:40 Pulse 71 03/27/22 06:40 Resp 18 03/27/22 06:40 BP 126/74 03/27/22 06:40 Pulse Ox 95 03/27/22 06:40 Laboratory Results - Last 24 Hours 03/25/22 03/25/22 03/26/22 13:19 13:19 18:18 POC Glucose (mg/dL) 83 POC Glu Coding Clerks Supervisor ID Shelley [address] Glu mg/dL 115 Hemoglobin A1c 5.6 Triglycerides 280.00 H Cholesterol 213.00 H LDL Cholesterol, Calc 123.4 VLDL Cholesterol, Calc 56.00 H HDL Cholesterol 33.60 L Cholesterol/HDL Ratio 6.34 Assessment Schizoaffective disorder, bipolar type Stimulant use disorder Nicotine dependence Cannabis use disorder Plan: -Patient continues to meet criteria for inpatient psychiatric admission for symptom stabilization and safety. Patient has been petitioned and certified. -Medications: The patient has been refusing his medications. His current medication regimen consists of clonidine, Vistaril, Lamictal, Zoloft, and Haldol. -When necessary Ativan and Haldol for agitation/aggression. -NRT - nicotine patch -SW on board for discharge planning. Encouraged the patient to participate in milieu.
[2022-03-27] MEDS: PRIMIDONE 50 MG TAB PO SCH (21:51)
[2022-03-27] MEDS: SERTRALINE 100 MG TAB PO SCH (21:51)
[2022-03-27] MEDS: cloNIDine HCL 0.2 MG TAB PO SCH (21:51)
[2022-03-28 07:02] VITALS: RESP 16
[2022-03-28] MEDS: FENOFIBRATE 160 MG TAB PO SCH (08:26)
[2022-03-28] MEDS: SYMBICORT 160-4.5 MCG INHALER INHALATION SCH ×2 (08:26→21:09)
[2022-03-28] MEDS: predniSONE 20 MG TAB PO SCH (08:27)
[2022-03-28] MEDS: hydrOXYzine pamoate 25 MG CAP PO SCH ×2 (08:27→20:58)
[2022-03-28] MEDS: lamoTRIgine 100 MG TAB PO SCH (08:27)
[2022-03-28] MEDS: haloperidoL 1 MG TAB PO SCH ×2 (08:27→20:59)
[2022-03-28] MEDS: NICOTINE 14MG/24HR PATCH TRANSDERM SCH (08:27)
--- NOTE | 2022-03-28 10:10 | P.PN ---
Progress Note - Text Progress Note Date: 03/28/22 Interval History: Patient was seen resting in bed and was directable and agreeable to speak with the typewriter ribbon winder in his room. The patient has been refusing his medications. He continues to endorse significant symptoms of psychosis including auditory hallucinations, paranoia, and bizarre delusions of persecution. The patient continues to believe that his actions in his words are causing "society to crumble." He reports that he has been unable to sleep last night. He endorses suicidal ideation. He denies any homicidal ideation. The patient denies any issues regarding his appetite. Mental Status Exam: General Appearance: Patient appears to be stated age is alert, directable, and cooperative. Behavior: Patient is lying down in bed with minimal movement. Poor eye contact. Speech: Patient's speech is nonspontaneous, fluent, monotone. Mood/Affect: Mood is "not good man" Affect is blunted and withdrawn. Suicidality/Homicidality: Patient denies having any suicidal or homicidal ideation intent or plan. Perceptions: Patient denies any visual hallucinations but endorses auditory hallucination. Though content/process: Paranoid delusions and persecutory delusions are endorsed. Dysphoric thought process. Memory and concentration: AOX3, grossly intact for the purposes of this session Judgment and insight: Very poor. Vital Signs Temp 97.8 F 03/28/22 06:32 Pulse 63 03/28/22 06:32 Resp 16 03/28/22 06:32 BP 146/83 03/28/22 06:32 Pulse Ox 95 03/27/22 06:40 Assessment Schizoaffective disorder, bipolar type Stimulant use disorder Nicotine dependence Cannabis use disorder Plan: -Patient continues to meet criteria for inpatient psychiatric admission for symptom stabilization and safety. Patient has been petitioned and certified. Court scheduled for 04/04/2022. -Medications: The patient has been refusing his medications. His current medication regimen consists of clonidine, Vistaril, Lamictal, Zoloft, and Haldol. -When necessary Ativan and Haldol for agitation/aggression. -NRT - nicotine patch -SW on board for discharge planning. Encouraged the patient to participate in milieu.
[2022-03-28] MEDS: PRIMIDONE 50 MG TAB PO SCH (20:58)
[2022-03-28] MEDS: SERTRALINE 100 MG TAB PO SCH (20:59)
[2022-03-28] MEDS: cloNIDine HCL 0.2 MG TAB PO SCH (20:59)
[2022-03-29] MEDS: haloperidoL 1 MG TAB PO SCH ×2 (08:12→20:27)
[2022-03-29] MEDS: NICOTINE 14MG/24HR PATCH TRANSDERM SCH (08:12)
[2022-03-29] MEDS: ALBUTEROL INHALER 60 PUFF/8 GM INHALER (MHU) INHALATION PRN (08:12)
[2022-03-29] MEDS: lamoTRIgine 100 MG TAB PO SCH (08:15)
[2022-03-29] MEDS: hydrOXYzine pamoate 25 MG CAP PO SCH ×2 (08:15→20:27)
[2022-03-29] MEDS: SYMBICORT 160-4.5 MCG INHALER INHALATION SCH ×3 (08:17→20:25)
[2022-03-29] MEDS: predniSONE 20 MG TAB PO SCH (09:01)
[2022-03-29] MEDS: FENOFIBRATE 160 MG TAB PO SCH (09:01)
--- NOTE | 2022-03-29 13:02 | P.PN ---
Progress Note - Text Progress Note Date: 03/29/22 Interval History: Patient was seen resting in bed and was directable and agreeable to speak with the magazine writer in his room. The patient reports that he is very upset that he is now "intertwined with the court system." He expresses anger towards this provider for having been petitioned and certified. The patient states that he feels like his rights are being completely ignored. He is currently denying any suicidal ideation or homicidal ideation. He is currently endorsing significant paranoia towards this provider as well as the court system. When asking him to clarify why exactly he is upset with being under a court order, the patient is vague and difficult to follow in his reasoning. He has been in adherent with his medications and is not reporting any significant side effects at this time. The patient then terminates the interview due to his anger. Mental Status Exam: General Appearance: Patient appears to be stated age is alert, difficult to direct and uncooperative. Behavior: Patient is seated upright in bed with intense eye contact. Speech: Patient's speech is loud in volume, yelling, spontaneous. Hyperverbal and pressured. Mood/Affect: Mood is "this should not have happened!" Affect is agitated. Suicidality/Homicidality: Patient denies having any suicidal or homicidal ideation intent or plan. Perceptions: Unable to assess Though content/process: Patient is overtly paranoid. Memory and concentration: Unable to appropriately assess. Judgment and insight: Very poor. Vital Signs Temp 97.9 F 03/29/22 06:49 Pulse 65 03/29/22 06:49 Resp 16 03/29/22 06:49 BP 116/69 03/29/22 06:49 Pulse Ox 99 03/29/22 06:49 Assessment Schizoaffective disorder, bipolar type Stimulant use disorder Nicotine dependence Cannabis use disorder Plan: -Patient continues to meet criteria for inpatient psychiatric admission for symptom stabilization and safety. Patient has been petitioned and certified. Court scheduled for 04/04/2022. -Medications: His current medication regimen consists of clonidine, Vistaril, Lamictal, Zoloft, and Haldol. We'll increase Haldol to 4 mg by mouth twice a day for mood stabilization/psychosis -When necessary Ativan and Haldol for agitation/aggression. -NRT - nicotine patch -SW on board for discharge planning. Encouraged the patient to participate in milieu.
[2022-03-29] MEDS: PRIMIDONE 50 MG TAB PO SCH (20:26)
[2022-03-29] MEDS: SERTRALINE 100 MG TAB PO SCH (20:27)
[2022-03-29] MEDS: cloNIDine HCL 0.2 MG TAB PO SCH (20:27)
[2022-03-30] MEDS: SYMBICORT 160-4.5 MCG INHALER INHALATION SCH (08:51)
[2022-03-30] MEDS: hydrOXYzine pamoate 25 MG CAP PO SCH ×2 (08:52→23:01)
[2022-03-30] MEDS: NICOTINE 14MG/24HR PATCH TRANSDERM SCH (08:52)
[2022-03-30] MEDS: FENOFIBRATE 160 MG TAB PO SCH (08:52)
[2022-03-30] MEDS: haloperidoL 1 MG TAB PO SCH (08:52)
[2022-03-30] MEDS: predniSONE 20 MG TAB PO SCH (08:53)
[2022-03-30] MEDS: lamoTRIgine 100 MG TAB PO SCH (08:53)
--- NOTE | 2022-03-30 12:21 | P.PN ---
Progress Note - Text Progress Note Date: 03/30/22 Interval History: Patient was seen resting in bed and was directable and agreeable to speak with the blog writer in his room. The patient reports no suicidal or homicidal ideation, intention, and/or plan today. He is not reporting any auditory or visual hallucinations today however does acknowledge that he was expressing them prior to this admission. He continues to endorse vague paranoid delusions and bizarre delusions. He states that I know I have those thoughts that my actions have caused other significant harm however they were just thoughts. He refuses to elaborate if he continues to feel this way. The patient has been adherent with his medications and is not reporting any significant side effects at this time. He remains primarily isolative to himself in his room. He reports that he does not want this provider or this treatment team to share any information with his . Mental Status Exam: General Appearance: Patient appears to be stated age is alert, directable, and more cooperative today. Behavior: Patient is seated upright in bed with intense eye contact. Speech: Patient's speech is with normal rate, tone, and volume. Thought tenuous. Mood/Affect: Mood is "annoyed" Affect is irritable. Suicidality/Homicidality: Patient denies having any suicidal or homicidal ideation intent or plan. Perceptions: Patient reports no auditory or visual hallucinations. Though content/process: Patient continues to endorse significant paranoia. Memory and concentration: Grossly intact for the purposes of this session. Judgment and insight: Mildly improving but continues to be poor. Vital Signs Temp 97.9 F 03/29/22 06:49 Pulse 65 03/29/22 06:49 Resp 16 03/29/22 06:49 BP 116/69 03/29/22 06:49 Pulse Ox 99 03/29/22 06:49 Assessment Schizoaffective disorder, bipolar type Stimulant use disorder Nicotine dependence Cannabis use disorder Plan: -Patient continues to meet criteria for inpatient psychiatric admission for symptom stabilization and safety. Patient has been petitioned and certified. Patient scheduled to meet with the environmental attorney today. Should he choose not to defer mental health court, his court is scheduled for 04/04/2022. -Medications: Increase Haldol to 5 mg by mouth twice a day for psychosis and mood stabilization. Consider transition to a long-acting injectable medication. Continue clonidine 0.2 mg by mouth at bedtime Continue Lamictal 150 mg by mouth daily for mood stabilization Continue Zoloft 200 mg by mouth at bedtime for depression/anxiety Continue Vistaril 50 mg by mouth every morning and 100 mg by mouth daily at bedtime for anxiety -When necessary Ativan and Haldol for agitation/aggression. -NRT - nicotine patch -SW on board for discharge planning. Encouraged the patient to participate in milieu.
[2022-03-30] MEDS: ALBUTEROL INHALER 60 PUFF/8 GM INHALER (MHU) INHALATION PRN (22:59)
[2022-03-30] MEDS: PRIMIDONE 50 MG TAB PO SCH (23:00)
[2022-03-30] MEDS: cloNIDine HCL 0.2 MG TAB PO SCH (23:00)
[2022-03-30] MEDS: SERTRALINE 100 MG TAB PO SCH (23:00)
[2022-03-30] MEDS: haloperidoL 5 MG TAB PO SCH (23:01)
[2022-03-31] MEDS: SYMBICORT 160-4.5 MCG INHALER INHALATION SCH ×3 (00:13→20:37)
[2022-03-31] MEDS: FENOFIBRATE 160 MG TAB PO SCH (08:38)
[2022-03-31] MEDS: NICOTINE 14MG/24HR PATCH TRANSDERM SCH (08:38)
[2022-03-31] MEDS: hydrOXYzine pamoate 25 MG CAP PO SCH ×2 (08:38→20:36)
[2022-03-31] MEDS: haloperidoL 5 MG TAB PO SCH ×2 (08:38→20:37)
[2022-03-31] MEDS: lamoTRIgine 100 MG TAB PO SCH (08:38)
[2022-03-31] MEDS: predniSONE 20 MG TAB PO SCH (08:39)
--- NOTE | 2022-03-31 12:43 | P.PN ---
Subjective Progress Note Date: 03/31/22 Principal diagnosis: Schizoaffective disorder bipolar type Stimulant use disorder Nicotine dependence Cannabis use disorder by history Subjective data: I'm feeling better but I do not want to bother anyone so I isolate myself in stable myself I'm not so sure if I agree with the doctors regarding the diagnosis that I still take my medications I came in because I was getting delusional Patient did not elaborate on his delusions Objective data: Patient was resting comfortably in his room but was easily arousable Patient was cooperative during the interview Affect remains flat Speech is clear and coherent and relevant Patient continues to minimize any substance use issues Patient's formal and operational judgment remains concrete Insight into his problem is poor Plan: Continue supportive care Discussed clarification of diagnosis and symptoms and to focus on his true p roblems in addition to his substance use issues Continue milieu treatment Patient continues to me in need of this hospitalization and meets the criteria for psychiatric admission for symptom stabilization and safety Patient did not report any side effects on his current medications Burt Dubon M.D. 03/31/2022 Objective - Vital Signs Vital signs: Vital Signs Temp 97.5 F L 03/31/22 07:10 Pulse 51 L 03/31/22 07:10 Resp 16 03/29/22 06:49 BP 100/60 03/31/22 07:10 Pulse Ox 98 03/31/22 07:10 - Labs CBC & Chem 7: 03/25/22 13:19 03/25/22 13:19
[2022-03-31] MEDS: PRIMIDONE 50 MG TAB PO SCH (20:36)
[2022-03-31] MEDS: SERTRALINE 100 MG TAB PO SCH (20:37)
[2022-03-31] MEDS: cloNIDine HCL 0.2 MG TAB PO SCH (20:37)
[2022-04-01] MEDS: predniSONE 20 MG TAB PO SCH (08:30)
[2022-04-01] MEDS: FENOFIBRATE 160 MG TAB PO SCH (08:30)
[2022-04-01] MEDS: NICOTINE 14MG/24HR PATCH TRANSDERM SCH (08:30)
[2022-04-01] MEDS: SYMBICORT 160-4.5 MCG INHALER INHALATION SCH ×2 (08:31→21:11)
[2022-04-01] MEDS: haloperidoL 5 MG TAB PO SCH ×2 (08:32→21:10)
[2022-04-01] MEDS: hydrOXYzine pamoate 25 MG CAP PO SCH ×2 (08:32→21:10)
[2022-04-01] MEDS: lamoTRIgine 100 MG TAB PO SCH (08:32)
--- NOTE | 2022-04-01 11:02 | P.PN ---
Subjective Progress Note Date: 04/01/22 Principal diagnosis: Schizoaffective disorder bipolar type Stimulant use disorder Nicotine dependence Cannabis use disorder by history Subjective data: There is too much commotion out there and that's why preferred to be by myself Patient does not offer much of any conversation and wanted to continue his sleep' Objective data: Patient was resting comfortably in his room but was easily arousable Patient was cooperative during the interview Affect remains flat Speech is clear and coherent and relevant Patient continues to minimize any substance use issues Patient's formal and operational judgment remains concrete Insight into his problem is poor Plan: Continue supportive care Discussed clarification of diagnosis and symptoms and to focus on his true problems in addition to his substance use issues Continue milieu treatment Patient continues to me in need of this hospitalization and meets the criteria for psychiatric admission for symptom stabilization and safety Patient did not report any side effects on his current medications [facility] 04/01/2022 Objective - Vital Signs Vital signs: Vital Signs Temp 97.5 F L 03/31/22 07:10 Pulse 51 L 03/31/22 07:10 Resp 16 03/29/22 06:49 BP 100/60 03/31/22 07:10 Pulse Ox 98 03/31/22 07:10 Intake & Output 03/31/22 04/01/22 04/01/22 18:59 06:59 18:59 Weight 81.7 kg - Labs CBC & Chem 7: 03/25/22 13:19 03/25/22 13:19
[2022-04-01] MEDS: PRIMIDONE 50 MG TAB PO SCH (21:09)
[2022-04-01] MEDS: cloNIDine HCL 0.2 MG TAB PO SCH (21:09)
[2022-04-01] MEDS: SERTRALINE 100 MG TAB PO SCH (21:10)
[2022-04-02] MEDS: NICOTINE 14MG/24HR PATCH TRANSDERM SCH (08:42)
[2022-04-02] MEDS: FENOFIBRATE 160 MG TAB PO SCH (08:43)
[2022-04-02] MEDS: SYMBICORT 160-4.5 MCG INHALER INHALATION SCH ×2 (08:43→23:52)
[2022-04-02] MEDS: lamoTRIgine 100 MG TAB PO SCH (08:47)
[2022-04-02] MEDS: haloperidoL 5 MG TAB PO SCH (08:48)
[2022-04-02] MEDS: hydrOXYzine pamoate 25 MG CAP PO SCH ×2 (08:49→22:31)
[2022-04-02] MEDS: predniSONE 20 MG TAB PO SCH (08:49)
--- NOTE | 2022-04-02 13:00 | P.PN ---
Progress Note - Text Progress Note Date: 04/02/22 Interval History: Patient was seen wandering the hallways and was directable and agreeable to speak with the press writer in the office. Currently, the patient is not reporting any suicidal or homicidal ideation, intention, and/or plan. He reports that his auditory hallucinations decreased significantly. He continues to report that auditory hallucinations present however appeared to be under control and that he is able to ignore them. He is denying any visual hallucinations. He reports no significant paranoia or other delusions. He does however express that he is not on the best of terms with his . He continues to desire no interaction with his . He has been adherent with his medications and has been tolerating them well. He reports no issues regarding his sleep, appetite, or hygiene and grooming. Mental Status Exam: General Appearance: Patient appears to be stated age is alert, directable, and cooperative. Behavior: Patient is seated with no agitated behavior. Speech: Patient's speech is with normal rate, tone, and volume. Mood/Affect: Mood is "doing better." Affect is constricted. Suicidality/Homicidality: Patient denies having any suicidal or homicidal ideation intent or plan. Perceptions: Patient reports no auditory or visual hallucinations. Though content/process: Patient denies any delusional thought content. Thought process appears linear and logical. Memory and concentration: Grossly intact for the purposes of this session. Judgment and insight: Improving. Vital Signs Temp 97.8 F 04/02/22 06:51 Pulse 51 L 04/02/22 06:51 Resp 16 04/02/22 06:51 BP 96/55 04/02/22 06:51 Pulse Ox 98 04/02/22 06:51 Intake & Output 04/01/22 04/02/22 04/02/22 18:59 06:59 18:59 Weight 81.7 kg Assessment Schizoaffective disorder, bipolar type Stimulant use disorder Nicotine dependence Cannabis use disorder Plan: -Patient continues to meet criteria for inpatient psychiatric admission for symptom stabilization and safety. Patient has been petitioned and certified. Patient deferred mental health court. -Medications: Continue Haldol 5 mg by mouth twice a day for psychosis and mood stabilization. Unfortunately, Haldol Decanoate is not covered by the patient's insurance policy. We will continue with oral Haldol. Continue clonidine 0.2 mg by mouth at bedtime Continue Lamictal 150 mg by mouth daily for mood stabilization Continue Zoloft 200 mg by mouth at bedtime for depression/anxiety Continue Vistaril 50 mg by mouth every morning and 100 mg by mouth daily at bedtime for anxiety -When necessary Ativan and Haldol for agitation/aggression. -NRT - nicotine patch -SW on board for discharge planning. Encouraged the patient to participate in milieu.
[2022-04-02] MEDS ORDERED: HALOPERIDOL DECANOATE 100 MG/ML 1 ML VIAL IM SCH (15:00)
[2022-04-02] MEDS: PRIMIDONE 50 MG TAB PO SCH (22:31)
[2022-04-02] MEDS: cloNIDine HCL 0.2 MG TAB PO SCH (22:31)
[2022-04-02] MEDS: SERTRALINE 100 MG TAB PO SCH (22:31)
[2022-04-03 07:15] VITALS: BP 106/67; PULSE 58; TEMP 98
[2022-04-03] MEDS: SYMBICORT 160-4.5 MCG INHALER INHALATION SCH (09:07)
[2022-04-03] MEDS: hydrOXYzine pamoate 25 MG CAP PO SCH (09:08)
[2022-04-03] MEDS: FENOFIBRATE 160 MG TAB PO SCH (09:08)
[2022-04-03] MEDS: lamoTRIgine 100 MG TAB PO SCH (09:08)
[2022-04-03] MEDS: predniSONE 20 MG TAB PO SCH (09:10)
[2022-04-03] MEDS: NICOTINE 14MG/24HR PATCH TRANSDERM SCH (09:10)
--- NOTE | 2022-04-03 12:00 | P.DS ---
Providers Date of admission: 03/25/22 21:33 Expected date of discharge: 04/03/22 Attending physician: Blaine Dsouza MD Consults: 03/25/22 21:36 Consult Physician Routine Consulting Provider: Sandra Rivera Consult Reason/Comments: Medical H&P Do you want consulting provider notified?: Yes Primary care physician: Stated None - Discharge Diagnosis(es) (1) Schizoaffective disorder, bipolar type Current Visit: Yes Status: Acute Priority: High (2) Stimulant use disorder Current Visit: Yes Status: Chronic Priority: Medium (3) Nicotine dependence Current Visit: Yes Status: Chronic Priority: Medium Hospital Course: Admission HPI: Patient is a , unemployed, 41-year-old male with significant history of schizoaffective disorder who presented to the emergency department on 03/25/2022, brought in by his for paranoia and delusional thoughts. Patient presented to the hospital on 03/25/2022, brought into the hospital by his for increased paranoia and delusional thoughts. Upon assessment by the PES nurse, the patient was noted be very guarded and paranoid. He continued to report that "I lied and everyone in the [employer] ." He was also noted to be very tearful and stating that he messed up both him and his 's lives. He continued to appear to be very dysphoric and endorsing very bizarre paranoid thoughts including stating that "The federal government has seized everything." He did endorse auditory hallucinations however refused to expense of the EPS tremors. As per petition, "Jignesh has been hearing voices and not sleeping or eating. He is very paranoid and won't leave the house." Upon evaluation on the psychiatric unit, the patient continues to endorse significant paranoia and dysphoria. He reports that he has messed up severely and that he is going to such torment that he might as well kill himself. He does admit to suicidal ideation however does not verbalize any plan. He denies any homicidal ideation, intention, and/or plan. He does admit to auditory hallucinations however is vague and is unable to expand on what this entails however he does report that the auditory hallucinations have been causing him significant grief. He is denying any visual hallucinations. The patient reports that he has been having difficulty with sleep over the past week and a half. He reports that this is when his symptoms started. He was unable to identify any precipitating stressors. In regards to substance use, the patient reports that he rarely uses marijuana and states that his last time was approximately 2-3 weeks ago. He reports that he has increased his tobacco use to almost 2 packs per day over the past week because of his psychiatric symptoms. He denies any heavy alcohol use. The patient does admit that he has been using illicit Adderall. He reports that he is unable to recall how much Adderall he has been taking but he reports that he has been taking 20 mg strength Adderall multiple times per day. The patient was also administered prednisone in the emergency department for wheezing and COPD. Hospital course: Upon admission to the unit patient was initially displaying significant symptoms of psychosis and paranoia. He was very hesitant to start any medications or engage in treatment and remained primarily isolative to himself in his room. The patient was therefore petitioned and certified him second clinical certificate was filled out. The patient continued to be very angry and dysphoric. Eventually, the patient began being adherent with his medication. He was restarted on his home medications and Haldol was added to his regimen and return address his symptoms of acute psychosis. Over the course of hospitalization, the patient displayed gradual improvement. Haldol was gradually titrated. With the course of hospitalization, the patient displayed improvement in regards to target symptoms of psychosis, dysphoria, and response to internal stimuli. The patient ended up differing mental health Court. He was agreeable to receiving long-acting injectable of Haldol Decanoate. He received 100 mg IM of Haldol Decanoate on 04/02/2022. On the day of discharge, the patient is not reporting any suicidal or homicidal ideation, intention, and/or plan. He is denying any auditory or visual hallucinations. He reports no paranoia or other delusions. Patient has been adherent with his medications is not reporting any significant side effects at this time. The patient also was counseled at length on the importance of medication adherence and appropriate outpatient follow-up. He denies any access to firearms of the weapons. Patient does endorse significant history of substance abuse, in particular his abuse of Adderall. He was counseled at length on the importance of abstaining from all substances including alcohol, marijuana, and especially illicit medications and stimulants. Prior to discharge, family meeting will be arranged by director social to answer questions and ensure safety. Mental status exam: General Appearance: Patient appears to be stated age is alert, pleasant, and cooperative. Patient is in no acute distress and has fair hygiene and grooming Behavior: Patient is calmly seated without any agitated behavior. Speech: Patient's speech is fluent and nonpressured. Mood/Affect: Patient reports their mood is "much better", affect is congruent and euthymic. Suicidality/Homicidality: Patient denies having any suicidal or homicidal ideation intent or plan. Perceptions: Patient denies any auditory or visual hallucinations. Though content/process: There is no evidence of any delusional thought content and thought process is linear and goal-directed. [Patient is future oriented. Memory and concentration: AOX3, grossly intact for the purposes of this session. Can spell "WORLD" backwards correctly. Judgment and insight: Improved with guarded prognosis Vital Signs Temp 98 F 04/03/22 07:14 Pulse 58 L 04/03/22 07:14 Resp 16 04/02/22 06:51 BP 106/67 04/03/22 07:14 Pulse Ox 98 04/03/22 07:14 Impression: Schizoaffective disorder, bipolar type Stimulant use disorder Nicotine dependence Cannabis use disorder Plan: -Continue with discharge today as patient has improved and stabilized psychiatrically and is not currently an imminent threat to himself and/or others. Patient will remain at chronically elevated risk for harm to self and/or others due to his impulsivity and substance abuse. -Continue medications: Haldol Decanoate 100 mg IM every 28 days for schizoaffective disorder Vistaril 50 mg by mouth daily for anxiety and 1 mg by mouth at bedtime Clonidine 0.2 mg daily at bedtime Lamictal 150 mg by mouth daily for mood stabilization Zoloft 100 mg daily at bedtime for depression/anxiety -Patient was counseled on the need for medication compliance and appropriate follow-up at mental health and also primary care for medical issues. Patient verbalized understanding and agreed. -Social work to arrange for and conduct family meeting to ensure safety upon discharge and answer any questions/concerns. Social work also to arrange for patients follow up appointments with [facility] for psychiatric care along with follow up with primary care provider. -Patient counseled on abstaining from recreational drugs and marijuana and alcohol. Was informed/educated on the adverse effects on their physical and mental health. Patient verbally agreed and understood. Patient was offered substance abuse treatment however declined at this time. -Patient was instructed to return to the hospital or seek immediate medical care if their psychiatric or medical symptoms do worsen or reoccur. -Psychoeducation and supportive therapy provided to patient. Risks and benefits of pharmacological treatment versus the risks and benefits of nontreatment weig ht and discussed. Informed consent discussion held. Common side effects of psychotropics discussed such as, but not limited to headache, GI disturbance, sexual dysfunction, movement disorders, sedation, and orthostatic hypotension. Life threatening and blackbox warnings of prescribed medications also discussed. Potential risks of operating a vehicle or heavy machinery discussed with patient at length. Advised on importance of compliance and a reliable and responsible manner. Patient advised to review FDA consumer labeling of all medications prior to taking. Patient verbalized understanding of potential risks, and agrees with current treatment plan. Patient advised to medically contact physician/emergency personnel if any acute changes in condition occur. Allergies Allergy/AdvReac Type Severity Reaction Status Date / Time No Known Allergies Allergy Verified 03/26/22 00:58 Laboratory Results WBC 8.2 k/uL (3.8-10.6) 03/25/22 13:19 RBC 5.37 m/uL (4.30-5.90) 03/25/22 13:19 Hgb 16.3 gm/dL (13.0-17.5) 03/25/22 13:19 Hct 48.5 % (39.0-53.0) 03/25/22 13:19 MCV 90.3 fL (80.0-100.0) 03/25/22 13:19 MCH 30.4 pg (25.0-35.0) 03/25/22 13:19 MCHC 33.7 g/dL (31.0-37.0) 03/25/22 13:19 RDW 13.4 % (11.5-15.5) 03/25/22 13:19 Plt Count 292 k/uL (150-450) 03/25/22 13:19 MPV 7.6 03/25/22 13:19 Neutrophils % 66 % 03/25/22 13:19 Lymphocytes % 23 % 03/25/22 13:19 Monocytes % 6 % 03/25/22 13:19 Eosinophils % 2 % 03/25/22 13:19 Basophils % 2 % 03/25/22 13:19 Neutrophils # 5.5 k/uL (1.3-7.7) 03/25/22 13:19 Lymphocytes # 1.9 k/uL (1.0-4.8) 03/25/22 13:19 Monocytes # 0.5 k/uL (0-1.0) 03/25/22 13:19 Eosinophils # 0.1 k/uL (0-0.7) 03/25/22 13:19 Basophils # 0.1 k/uL (0-0.2) 03/25/22 13:19 Sodium 138 mmol/L (137-145) 03/25/22 13:19 Potassium 3.8 mmol/L (3.5-5.1) 03/25/22 13:19 Chloride 107 mmol/L (98-107) 03/25/22 13:19 Carbon Dioxide 20 mmol/L (22-30) L 03/25/22 13:19 Anion Gap 11 mmol/L 03/25/22 13:19 BUN 6 mg/dL (9-20) L 03/25/22 13:19 Creatinine 0.96 mg/dL (0.66-1.25) 03/25/22 13:19 Est GFR (CKD-EPI)AfAm >90 (>60 ml/min/1.73 sqM) 03/25/22 13:19 Est GFR (CKD-EPI)NonAf >90 (>60 ml/min/1.73 sqM) 03/25/22 13:19 Glucose 96 mg/dL (74-99) 03/25/22 13:19 POC Glucose (mg/dL) 83 mg/dL (75-99) 03/26/22 18:18 POC Glu Flattening [employer] Operator Shelely Calderon 03/26/22 18:[address] Glu mg/dL 115 03/25/22 13:19 Hemoglobin A1c 5.6 % (0.0-6.0) 03/25/22 13:19 Calcium 9.6 mg/dL (8.4-10.2) 03/25/22 13:19 Triglycerides 280.00 mg/dL (0.00-149.00) H 03/25/22 13:19 Cholesterol 213.00 mg/dL (0.00-200.00) H 03/25/22 13:19 LDL Cholesterol, Calc 123.4 mg/dL (0.0-131.0) 03/25/22 13:19 VLDL Cholesterol, Calc 56.00 mg/dL (5.00-40.00) H 03/25/22 13:19 HDL Cholesterol 33.60 mg/dL (40.00-60.00) L 03/25/22 13:19 Cholesterol/HDL Ratio 6.34 Ratio 03/25/22 13:19 TSH 1.610 mIU/L (0.465-4.680) 03/25/22 13:19 Salicylates <1.0 mg/dL 03/25/22 13:19 Acetaminophen <10.0 ug/mL 03/25/22 13:19 Serum Alcohol <10 mg/dL 03/25/22 13:19 Coronavirus (PCR) Not Detected (Not Detectd) 03/25/22 13:19 Patient Condition at Discharge: Stable Plan - Discharge Summary Discharge Rx Participant: No New Discharge Prescriptions: New hydrOXYzine pamoate [Vistaril] 50 mg PO DAILY 30 Days cap Sertraline [Zoloft] 200 mg PO HS 30 Days tab Haloperidol Decanoate [Haldol D] 100 mg IM Q28D #1 each cloNIDine HCL [Catapres] 0.2 mg PO HS 30 Days tab lamoTRIgine [LaMICtal] 150 mg PO DAILY 30 Days tab hydrOXYzine pamoate [Vistaril] 100 mg PO HS 30 Days cap Continue Albuterol Sulfate [Proventil Hfa] 2 puff INHALATION RT-Q6H PRN PRN Reason: Shortness Of Breath Fluticasone Propion/Salmeterol [Wixela 250-50 Inhub] 1 puff INHALATION RT-BID Fenofibrate Nanocrystallized [Fenofibrate] 145 mg PO DAILY Primidone [Mysoline] 100 mg PO HS Discontinued lamoTRIgine [LaMICtal] 50 mg PO DAILY #30 tab lamoTRIgine [LaMICtal] 100 mg PO DAILY hydrOXYzine pamoate [Vistaril] 50 mg PO DAILY Sertraline [Zoloft] 200 mg PO HS hydrOXYzine pamoate [Vistaril] 100 mg PO HS cloNIDine HCL 0.2 mg PO HS Discharge Medication List Albuterol Sulfate [Proventil Hfa] 2 puff INHALATION RT-Q6H PRN 11/27/21 [History] Fenofibrate Nanocrystallized [Fenofibrate] 145 mg PO DAILY 03/25/22 [History] Fluticasone Propion/Salmeterol [Wixela 250-50 Inhub] 1 puff INHALATION RT-BID 03/25/22 [History] Primidone [Mysoline] 100 mg PO HS 03/25/22 [History] Haloperidol Decanoate [Haldol D] 100 mg IM Q28D #1 each 04/03/22 [Rx] Sertraline [Zoloft] 200 mg PO HS 30 Days tab 04/03/22 [Rx] cloNIDine HCL [Catapres] 0.2 mg PO HS 30 Days tab 04/03/22 [Rx] hydrOXYzine pamoate [Vistaril] 50 mg PO DAILY 30 Days cap 04/03/22 [Rx] hydrOXYzine pamoate [Vistaril] 100 mg PO HS 30 Days cap 04/03/22 [Rx] lamoTRIgine [LaMICtal] 150 mg PO DAILY 30 Days tab 04/03/22 [Rx] Follow up Appointment(s)/Referral(s): [facility] [Outside] - 04/04/22 9:30 am (04-04-22 at 9:30 with Johanna Sepulveda 04-18-22 at 11:00 with CUAUHTEMOC Cross @ [place] office) [facility] Patient Instructions/Handouts: How to Stop Smoking (DC), Depression (DC), Psychotic Disorder (DC) Activity/Diet/Wound Care/Special Instructions: Activity and diet as tolerated. Avoid the use of street drugs and alcohol. Take all medications as prescribed. When you are in need of refills on your medications please contact your medical provider and/or outpatient psychiatrist to have this done. Please go to scheduled outpatient appointment for aftercare treatment. If symptoms return or become worse, call the crisis line at and/or go to the nearest emergency room for evaluation Discharge Disposition: HOME SELF-CARE
== END 2022-04-03 12:02 | disposition home or self-care (01) | DRG 885 ==
LOC: EC 12:33 → 3MHU 21:33
PROVIDERS: ADMIT Psychiatry & Neurology Psychiatry; ATTEND Psychiatry & Neurology Psychiatry
DX: F25.0 Schizoaffective disorder, bipolar type (principal); J44.1 Chronic obstructive pulmonary disease with (acute) exacerbation; R45.851 Suicidal ideations; F12.10 Cannabis abuse, uncomplicated; F15.10 Other stimulant abuse, uncomplicated; F41.9 Anxiety disorder, unspecified; F17.210 Nicotine dependence, cigarettes, uncomplicated; F43.10 Post-traumatic stress disorder, unspecified; Z28.310 Unvaccinated for COVID-19; Z20.822 Contact with and (suspected) exposure to COVID-19; Z56.0 Unemployment, unspecified; Z79.899 Other long term (current) drug therapy; Z71.89 Other specified counseling
CPT/HCPCS: 36415; 71045; 80048; 80061; 80143; 80179; 80320; 82075; 83036; 84443; 85025; 87635; 99285

== ENCOUNTER 2022-04-05 08:22 | Inpatient (IN) | payer BC ==
--- NOTE | 2022-04-05 08:50 | ED ---
General Adult HPI - General Chief complaint: Psychiatric Symptoms Stated complaint: Mental Health Time Seen by Provider: 04/05/22 08:30 Source: patient, RN notes reviewed, old records reviewed Mode of arrival: ambulatory Limitations: no limitations - History of Present Illness Initial comments: This is a 41-year-old male who presents emergency Department with a past medical history for schizoaffective as well as bipolar. Patient was just discharged from the mental health worker on Saturday but since then he hasn't slept in his become paranoid particularly in the middle the night. Patient thought his was working for the [employer] and that she was trying to become present last evening even though the patient now states he realizes that is not true in the moment he didn't believe it. Patient denies any visual hallucinations or auditory hallucinations. Patient denies any physical complaints today. Patient denies any fever chills or cough per patient denies chest pain difficult breathing shortness of breath per patient states he does smoke and has been smoking quite heavily since she's been home. - Related Data Home Medications Medication Instructions Recorded Confirmed Albuterol Sulfate [Proventil Hfa] 2 puff INHALATION RT-Q6H PRN 11/27/21 04/05/22 Fenofibrate Nanocrystallized 145 mg PO DAILY 03/25/22 04/05/22 [Fenofibrate] Fluticasone Propion/Salmeterol 1 puff INHALATION RT-BID 03/25/22 04/05/22 [Wixela 250-50 Inhub] Primidone [Mysoline] 100 mg PO HS 03/25/22 04/05/22 Sertraline [Zoloft] 200 mg PO HS 04/05/22 04/05/22 cloNIDine HCL [Catapres] 0.2 mg PO HS 04/05/22 04/05/22 hydrOXYzine pamoate [Vistaril] 50 mg PO QAM 04/05/22 04/05/22 hydrOXYzine pamoate [hydrOXYzine 100 mg PO HS 04/05/22 04/05/22 PAMOATE] lamoTRIgine [LaMICtal] 50 mg PO DAILY 04/05/22 04/05/22 lamoTRIgine [LaMICtal] 100 mg PO DAILY 04/05/22 04/05/22 Previous Rx's Medication Instructions Recorded Haloperidol Decanoate [Haldol D] 100 mg IM Q28D #1 each 04/03/22 Allergies Allergy/AdvReac Type Severity Reaction Status Date / Time No Known Allergies Allergy Verified 04/05/22 11:26 Review of Systems ROS Statement: Those systems with pertinent positive or pertinent negative responses have been documented in the HPI. ROS Other: All systems not noted in ROS Statement are negative. Past Medical History Past Medical History: No Reported History History of Any Multi-Drug Resistant Organisms: None Reported Past Surgical History: Hernia Repair Past Anesthesia/Blood Transfusion Reactions: No Reported Reaction Past Psychological History: Bipolar, PTSD, Schizoaffective Disorder Smoking Status: Current every day smoker Past Alcohol Use History: Rare Past Drug Use History: None Reported General Exam - General Exam Comments Initial Comments: GENERAL: Patient is well-developed and well-nourished. Patient is nontoxic and well- hydrated and is in no acute distress. ENT: Neck is soft and supple. No significant lymphadenopathy is noted. Oropharynx is clear. Moist mucous membranes. Neck has full range of motion without eliciting any pain. EYES: The sclera were anicteric and conjunctiva were pink and moist. Extraocular movements were intact and pupils were equal round and reactive to light. Eyelids were unremarkable. PULMONARY: Unlabored respirations. Good breath sounds bilaterally. No audible rales rhonchi or wheezing was noted. CARDIOVASCULAR: There is a regular rate and rhythm without any murmurs gallops or rubs. ABDOMEN: Soft and nontender with normal bowel sounds. SKIN: Skin is clear with no lesions or rashes and otherwise unremarkable. NEUROLOGIC: Patient is alert and oriented x3. Cranial nerves II through XII are grossly in tact. Motor and sensory are also intact. Normal speech, volume and content. Symmetrical smile. MUSCULOSKELETAL: Normal extremities with adequate strength and full range of motion. LYMPHATICS: No significant lymphadenopathy is noted PSYCHIATRIC: Patient has been having episodes of paranoia in the middle the night and been unable to sleep. Patient denies suicidal homicidal ideations. Limitations: no limitations Course Vital Signs 04/05/22 08:27 Temperature 97.8 F Pulse Rate 100 Respiratory 18 Rate Blood Pressure 137/93 O2 Sat by Pulse 96 Oximetry Medical Decision Making - Lab Data Lab Results 04/05/22 Range/Units 10:14 Urine Opiates Screen Not Detected (NotDetected) Ur Oxycodone Screen Not Detected (NotDetected) Urine Methadone Screen Not Detected (NotDetected) Ur Propoxyphene Screen Not Detected (NotDetected) Ur Barbiturates Screen Detected H (NotDetected) U Tricyclic Antidepress Not Detected (NotDetected) Ur Phencyclidine Scrn Not Detected (NotDetected) Ur Amphetamines Screen Not Detected (NotDetected) U Methamphetamines Scrn Not Detected (NotDetected) U Benzodiazepines Scrn Not Detected (NotDetected) Urine Cocaine Screen Not Detected (NotDetected) U Marijuana (THC) Screen Not Detected (NotDetected) Disposition Clinical Impression: Bipolar disorder, Paranoid delusion Disposition: ADMITTED IP TO THIS HOSP Referrals: Tsering Zimmerman DO [Primary Care Provider] - 1-2 days Time of Disposition: 11:47
[2022-04-05 10:49] LABS: Amphetamine Screen,Urine Not Detected (NotDetected); Barbiturate Screen,Urine Detected (NotDetected); Benzodiazepines Screen,Urine Not Detected (NotDetected); Cocaine Screen,Urine Not Detected (NotDetected); Methadone Screen, Urine Not Detected (NotDetected); Opiate Screen,Urine Not Detected (NotDetected); Oxycodone Screen, Urine Not Detected (NotDetected); Phencyclidine Screen,Urine Not Detected (NotDetected); Tricyclic Antidepressant,Urine Not Detected (NotDetected); Urn Cannabinoid Scrn Not Detected (NotDetected)
[2022-04-05 15:18] VITALS: RESP 16
[2022-04-05] MEDS ORDERED: MAGNESIUM HYDROXIDE 2,400 MG/10 ML CUP PO PRN (15:31)
[2022-04-05] MEDS ORDERED: MAG HYDROX/AL HYDROX/SIMETH 30 ML CUP PO PRN (15:31)
[2022-04-05] MEDS ORDERED: ACETAMINOPHEN TAB 325 MG TAB PO PRN (15:31)
[2022-04-05] MEDS ORDERED: ALBUTEROL HFA INHALER INHALATION PRN (15:34)
[2022-04-05] MEDS ORDERED: LORazepam 2 MG/ML INJ IM PRN (15:36)
[2022-04-05] MEDS ORDERED: LORazepam 1 MG TAB PO PRN (15:36)
[2022-04-05] MEDS ORDERED: HALOPERIDOL LACTATE 5 MG/ML 1 ML VIAL IM PRN (15:40)
[2022-04-05] MEDS ORDERED: haloperidoL 5 MG TAB PO PRN (15:40)
[2022-04-05 15:55] LABS: Appearance,Urine Clear (Clear); Bilirubin,Urine Negative (Negative); Blood,Urine Negative (Negative); Color,Urine Light Yellow; Glucose,Urine (UA) Negative (Negative); Ketones,Urine Negative (Negative); Leukocyte Esterase,Urine Negative (Negative); Nitrite,Urine Negative (Negative); Protein,Urine Negative (Negative); Specific Gravity,Urine 1.005 (1.001-1.035); Urobilinogen,Urine <2.0 mg/dL (<2.0)
[2022-04-05] MEDS: NICOTINE 14MG/24HR PATCH TRANSDERM SCH (16:01)
--- NOTE | 2022-04-05 17:53 | CONS ---
CONSULTATION DATE OF SERVICE: 04/05/2022 REASON FOR CONSULTATION: Advice regarding hernia repair and other medical issues, requested by Psychiatry. HISTORY OF PRESENT ILLNESS: This 41-year-old gentleman with a past medical history of bipolar, PTSD, also has a history of hernia repair. The patient has some rash around the knees from self- picking, according to him. There is no history of any fever, rigors or chills. No history of headache, loss of consciousness, seizures. PAST MEDICAL HISTORY: Bipolar, PTSD, schizoaffective disorder, hernia repair. MEDICATIONS: Home medications are reviewed and include Mysoline, Wixela. Doses and other medications are reviewed. ALLERGIES: NONE. FAMILY HISTORY: No history of heart disease or strokes in the family. SOCIAL HISTORY: History of smoking, previous cocaine. REVIEW OF SYSTEMS: Fourteen-point review of systems negative except as mentioned earlier. PHYSICAL EXAMINATION: Pulse is 100, blood pressure 137/93, respiration 18. HEENT: Conjunctivae normal. NECK: No jugular venous distention. CARDIOVASCULAR: S1, S2 muffled. RESPIRATION: Breath sounds diminished at the bases. No rhonchi. No crackles. ABDOMEN: Soft, nontender. LEGS: Minimal erythema around the knees. NERVOUS SYSTEM: Cranial nerves 2 through 12 grossly intact. No focal neurologic deficits. SKIN: As mentioned earlier. JOINTS: No active deforming arthropathy. LABS: Reviewed. ASSESSMENT: 1. Rule out psychosis. 2. History of hernia repair. 3. Skin rash. 4. Bipolar, post-traumatic stress disorder, schizoaffective disorder. RECOMMENDATIONS AND DISCUSSION: This 41-year-old gentleman admitted for psychiatric evaluation appears to be medically stable. The skin rash appears to be partly self-inflicted. I will be happy to review with you any abnormal labs. Otherwise, I recommend close followup with primary physician after discharge. Thank you, Dr. Shelby, for letting us participate in the care of this patient. Patient is medically stable. MMODL / IJN: [id number] /
[2022-04-05] MEDS ORDERED: SYMBICORT 80-4.5 MCG INHALER INHALATION SCH (20:00)
[2022-04-05] MEDS: PRIMIDONE 50 MG TAB PO SCH (20:44)
[2022-04-05] MEDS: cloNIDine HCL 0.2 MG TAB PO SCH (20:44)
[2022-04-05] MEDS: hydrOXYzine pamoate 25 MG CAP PO SCH (20:45)
[2022-04-05] MEDS ORDERED: SERTRALINE 100 MG TAB PO SCH (21:00)
[2022-04-05] MEDS: SYMBICORT 80-4.5 MCG INHALER (MHU) INHALATION SCH (21:29)
[2022-04-06 07:02] LABS: Basophils % (A) 1 %; Eosinophils # (A) 0.2 k/uL (0-0.7); Eosinophils % (A) 3 %; HCT 49.1 % (39.0-53.0); HGB 15.8 gm/dL (13.0-17.5); Lymphocytes # (A) 1.9 k/uL (1.0-4.8); Lymphocytes % (A) 28 %; MCH 30.1 pg (25.0-35.0); MCHC 32.1 g/dL (31.0-37.0); MCV 93.6 fL (80.0-100.0); Mean Platelet Volume 7.9; Monocytes # (A) 0.5 k/uL (0-1.0); Monocytes % (A) 8 %; Neutrophils % (A) 59 %; Platelet Count 285 k/uL (150-450); RBC 5.24 m/uL (4.30-5.90); WBC 6.8 k/uL (3.8-10.6)
[2022-04-06 07:12] LABS: ALT 16 U/L (4-49); AST 19 U/L (17-59); African American GFR (CKD) >90 (>60 ml/min/1.73 sqM); Albumin 4.5 g/dL (3.5-5.0); Alkaline Phosphatase 58 U/L (38-126); Anion Gap 9 mmol/L; Bilirubin, Delta 0.3 mg/dL (0.0-0.2); Bilirubin,Unconjugated 0.6 mg/dL (0.0-1.1); Blood Urea Nitrogen 13 mg/dL (9-20); Calcium 10.1 mg/dL (8.4-10.2); Carbon Dioxide 28 mmol/L (22-30); Chloride 102 mmol/L (98-107); Glucose 94 mg/dL (74-99); Non-African American GFR(CKD) >90 (>60 ml/min/1.73 sqM); Potassium 4.6 mmol/L (3.5-5.1); Sodium 139 mmol/L (137-145); Total Bilirubin 0.9 mg/dL (0.2-1.3); Total Protein 7.5 g/dL (6.3-8.2)
[2022-04-06] MEDS: FENOFIBRATE 160 MG TAB PO SCH (09:14)
[2022-04-06] MEDS: lamoTRIgine 100 MG TAB PO SCH (09:16)
[2022-04-06] MEDS: lamoTRIgine 25 MG TAB PO SCH (09:16)
[2022-04-06] MEDS: hydrOXYzine pamoate 25 MG CAP PO SCH ×2 (09:18→20:21)
[2022-04-06] MEDS: NICOTINE 14MG/24HR PATCH TRANSDERM SCH (09:24)
[2022-04-06] MEDS: SYMBICORT 80-4.5 MCG INHALER (MHU) INHALATION SCH ×2 (09:24→20:25)
--- NOTE | 2022-04-06 11:44 | P.HP ---
Psychiatric H&P - . H&P Date: 04/06/22 History & Physical: Allergies Allergy/AdvReac Type Severity Reaction Status Date / Time No Known Allergies Allergy Verified 04/05/22 11:26 Vital Signs Temp 97.6 F 04/05/22 13:55 Pulse 85 04/05/22 13:55 Resp 16 04/05/22 13:55 BP 135/79 04/05/22 13:55 Pulse Ox 95 04/05/22 13:55 Intake & Output 04/05/22 04/06/22 04/06/22 18:59 06:59 18:59 Weight 86.183 kg Laboratory Last Values WBC 6.8 k/uL (3.8-10.6) 04/06/22 06:27 RBC 5.24 m/uL (4.30-5.90) 04/06/22 06:27 Hgb 15.8 gm/dL (13.0-17.5) 04/06/22 06:27 Hct 49.1 % (39.0-53.0) 04/06/22 06:27 MCV 93.6 fL (80.0-100.0) 04/06/22 06:27 MCH 30.1 pg (25.0-35.0) 04/06/22 06:27 MCHC 32.1 g/dL (31.0-37.0) 04/06/22 06:27 RDW 13.0 % (11.5-15.5) 04/06/22 06:27 Plt Count 285 k/uL (150-450) 04/06/22 06:27 MPV 7.9 04/06/22 06:27 Neutrophils % 59 % 04/06/22 06:27 Lymphocytes % 28 % 04/06/22 06:27 Monocytes % 8 % 04/06/22 06:27 Eosinophils % 3 % 04/06/22 06:27 Basophils % 1 % 04/06/22 06:27 Neutrophils # 4.0 k/uL (1.3-7.7) 04/06/22 06:27 Lymphocytes # 1.9 k/uL (1.0-4.8) 04/06/22 06:27 Monocytes # 0.5 k/uL (0-1.0) 04/06/22 06:27 Eosinophils # 0.2 k/uL (0-0.7) 04/06/22 06:27 Basophils # 0.0 k/uL (0-0.2) 04/06/22 06:27 Sodium 139 mmol/L (137-145) 04/06/22 06:27 Potassium 4.6 mmol/L (3.5-5.1) 04/06/22 06:27 Chloride 102 mmol/L (98-107) 04/06/22 06:27 Carbon Dioxide 28 mmol/L (22-30) 04/06/22 06:27 Anion Gap 9 mmol/L 04/06/22 06:27 BUN 13 mg/dL (9-20) 04/06/22 06:27 Creatinine 0.92 mg/dL (0.66-1.25) 04/06/22 06:27 Est GFR (CKD-EPI)AfAm >90 (>60 ml/min/1.73 sqM) 04/06/22 06:27 Est GFR (CKD-EPI)NonAf >90 (>60 ml/min/1.73 sqM) 04/06/22 06:27 Glucose 94 mg/dL (74-99) 04/06/22 06:[address] Glu mg/dL 110 04/06/22 06:27 Hemoglobin A1c 5.5 % (0.0-6.0) 04/06/22 06:27 Calcium 10.1 mg/dL (8.4-10.2) 04/06/22 06:27 Total Bilirubin 0.9 mg/dL (0.2-1.3) 04/06/22 06:27 Conjugated Bilirubin 0.0 mg/dL (0.0-0.3) 04/06/22 06:27 Unconjugated Bilirubin 0.6 mg/dL (0.0-1.1) 04/06/22 06:27 Delta Bilirubin 0.3 mg/dL (0.0-0.2) H 04/06/22 06:27 AST 19 U/L (17-59) 04/06/22 06:27 ALT 16 U/L (4-49) 04/06/22 06:27 Alkaline Phosphatase 58 U/L (38-126) 04/06/22 06:27 Total Protein 7.5 g/dL (6.3-8.2) 04/06/22 06:27 Albumin 4.5 g/dL (3.5-5.0) 04/06/22 06:27 TSH 1.350 mIU/L (0.465-4.680) 04/06/22 06:27 Urine Color Light Yellow 04/05/22 10:14 Urine Appearance Clear (Clear) 04/05/22 10:14 Urine pH 7.0 (5.0-8.0) 04/05/22 10:14 Ur Specific [place] 1.005 (1.001-1.035) 04/05/22 10:14 Urine Protein Negative (Negative) 04/05/22 10:14 Urine Glucose (UA) Negative (Negative) 04/05/22 10:14 Urine Ketones Negative (Negative) 04/05/22 10:14 Urine Blood Negative (Negative) 04/05/22 10:14 Urine Nitrite Negative (Negative) 04/05/22 10:14 Urine Bilirubin Negative (Negative) 04/05/22 10:14 Urine Urobilinogen <2.0 mg/dL (<2.0) 04/05/22 10:14 Ur Leukocyte Esterase Negative (Negative) 04/05/22 10:14 Urine Opiates Screen Not Detected (NotDetected) 04/05/22 10:14 Ur Oxycodone Screen Not Detected (NotDetected) 04/05/22 10:14 Urine Methadone Screen Not Detected (NotDetected) 04/05/22 10:14 Ur Propoxyphene Screen Not Detected (NotDetected) 04/05/22 10:14 Ur Barbiturates Screen Detected (NotDetected) H 04/05/22 10:14 U Tricyclic Antidepress Not Detected (NotDetected) 04/05/22 10:14 Ur Phencyclidine Scrn Not Detected (NotDetected) 04/05/22 10:14 Ur Amphetamines Screen Not Detected (NotDetected) 04/05/22 10:14 U Methamphetamines Scrn Not Detected (NotDetected) 04/05/22 10:14 U Benzodiazepines Scrn Not Detected (NotDetected) 04/05/22 10:14 Urine Cocaine Screen Not Detected (NotDetected) 04/05/22 10:14 U Marijuana (THC) Screen Not Detected (NotDetected) 04/05/22 10:14 Coronavirus (PCR) Not Detected (Not Detectd) 04/05/22 11:31 04/06/22 11:43 IDENTIFYING DATA: Patient is a , unemployed, 41-year-old male with significant history of schizoaffective disorder, bipolar type, presents emergency department on 04/05/2022, for paranoia HPI: Patient presented to the hospital on 04/05/2022, brought into the emergency department by his after been recently discharged from this mental health unit on 04/03/2022. The patient was reported to be up at approximately 2 AM the morning of 04/05/2022, and was noted to be very paranoid. 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 The patient was recently discharged from this hospital and is currently under a deferral status. During his last hospitalization, the patient did receive Haldol decanoate 100 mg IM on 04/02/2022. He was also continued on his regimen of Lamictal, clonidine, and Zoloft. In between his last discharge and this admission, the patient vehemently denies any drug use. He is unable to identify the reasons why he is currently readmitted to the hospital and only expresses that he and his need to be . The patient is currently denying any suicidal or homicidal ideation, intention, and/or plan. He is currently denying any auditory or visual hallucinations. Remains guarded and is not reporting any overt paranoia or other delusions. The patient has been noted to be very bizarre to staff. Currently, the patient is found lying down on his floor with no bedsheet or mattress. When asked if he is willing to transfer back to his bed, the patient states that he is happy being on the floor. He has not participated in meals. He subsequently admitted for further evaluation and management of his acute psychosis. PAST PSYCHIATRIC HISTORY: Patient has been diagnosed with schizoaffective disorder, bipolar type. He was last discharged on a regimen of Haldol Decanoate, Vistaril, clonidine, Lamictal, and Zoloft. 03/26/2022 to 04/03/2022. Patient was discharged to follow-up with [facility] however decompensated and is now presenting back in our psychiatric unit. He does report one prior attempt at suicide in the past. PMH: Past Medical History: No Reported History History of Any Multi-Drug Resistant Organisms: None Reported Past Surgical History: Hernia Repair Past Anesthesia/Blood Transfusion Reactions: No Reported Reaction Past Psychological History: Bipolar, PTSD, Schizoaffective Disorder Smoking Status: Current every day smoker Past Alcohol Use History: Rare Past Drug Use History: None Reported ALLERGIES: NO KNOWN DRUG ALLERGIES CHEMICAL DEPENDENCY HISTORY: The patient does admit to daily nicotine use. He also reports a history of marijuana abuse however denies any substance use prior to this admission. The patient also reported to this provider history of al cohol abuse. FAMILY PSYCHIATRIC/SUBSTANCE USE HISTORY: The patient is currently unable to provide any previous family psychiatric or substance abuse history. SOCIAL HISTORY: Patient is . He reports that he and his are . He lives with his . He was previously employed by [employer] prior to his first psychotic break years ago. He has 2 children ages 7 and 10 years old. MENTAL STATUS EXAM: General Appearance: Patient appears to be stated age is alert, directable, and attempts to cooperate. Patient appears to have disheveled hygiene and grooming. Behavior: Patient is lying down on the floor and refuses to make eye contact. Speech: Patient's speech is nonspontaneous, fluent, monotone. Mood/Affect: Patient reports their mood is "there is no point to anything." Affect is blunted and bizarre. Suicidality/Homicidality: Patient denies any suicidal or homicidal ideation. Perceptions: Patient denies any visual hallucinations but endorses auditory hallucinations. Thought content/process: The patient denies any overt delusional content however appears to be guarded and paranoid. His thought process appears to be dysphoric at this time. Memory and concentration: AOX3, grossly intact for the purposes of this session. Can spell "WORLD" backwards Judgment and insight: Very poor. STRENGTHS/WEAKNESSES: Unable to identify patient strengths at this time. Weakn esses the patient has a history of substance abuse and history of nonadherence to treatment. INTELLECT: average IMPRESSIONS: Schizoaffective disorder, bipolar type Stimulant use disorder Nicotine dependence Cannabis use disorder PLAN: -Patient is admitted under voluntary status to MHU for stabilization of psychiatric symptoms and safety. Patient signed adult voluntary form and medication consent and is placed in patient's chart. Patient is under deferral status during his last admission. -Medications : Continue clonidine 0.2 mg by mouth at bedtime Continue Lamictal 150 mg by mouth daily for mood stabilization Decrease Zoloft from 200 to 150 mg by mouth at bedtime due to concerns from possible manic switch The patient received Haldol Decanoate 100 mg IM on 04/02/2022. -Ativan and Haldol PRN for agitation/aggression -Patient was counselled on substance abuse and desired to cut back on use -Patient was informed of the risks, benefits and side effects of the medication and patient verbally consented to taking the medications. Patient signed med consent form and was placed in chart. -Internal Medicine consult to perform medical evaluation and physical. -NRT - nicotine patch -SW on board for discharge planning. Encourage patient to participate in groups to work on coping skills. 04/06/22 11:43
[2022-04-06 15:54] LABS: Chol/HDL Ratio 5.26 Ratio; LDL Cholesterol,Calculated 102.5 mg/dL (0.0-131.0)
[2022-04-06] MEDS: cloNIDine HCL 0.2 MG TAB PO SCH (20:20)
[2022-04-06] MEDS: PRIMIDONE 50 MG TAB PO SCH (20:21)
[2022-04-06] MEDS: SERTRALINE 50 MG TAB PO SCH (20:22)
[2022-04-07] MEDS: SYMBICORT 80-4.5 MCG INHALER (MHU) INHALATION SCH ×2 (09:05→19:54)
[2022-04-07] MEDS: hydrOXYzine pamoate 25 MG CAP PO SCH ×2 (09:05→19:55)
[2022-04-07] MEDS: FENOFIBRATE 160 MG TAB PO SCH (09:06)
[2022-04-07] MEDS: lamoTRIgine 100 MG TAB PO SCH (09:06)
[2022-04-07] MEDS: NICOTINE 14MG/24HR PATCH TRANSDERM SCH (09:06)
[2022-04-07] MEDS: lamoTRIgine 25 MG TAB PO SCH (09:06)
--- NOTE | 2022-04-07 15:36 | P.PN ---
Progress Note - Text Progress Note Date: 04/07/22 Interval history: Patient was directable and agreeable to speak with service writer. He reports his mood is "fine other than thinking about my relationship with my . It is failing..." He admits to depressed mood. He is argumentative but does not become agitated. He is fixated on his relationship with his . He has a poor frustration tolerance. He makes provocative statements such as "I'm so done with this and "jump on a grenade." He admits to paranoia and was hearing voices heckling him at home. At this time patient denies any suicidal or homicidal ideations intent or plan. Denies any auditory or visual hallucinations. Patient denies any side effects from the medications and has been compliant with meds. Mental status exam: General Appearance: Patient appears to be stated age is alert, directable, and cooperative. Behavior: No agitated behavior. Patient is irritable but directable. Speech: Patient's speech is fluent and intense, but not pressured. Mood/Affect: Mood is irritable and depressed, affect is congruent and constricted. Suicidality/Homicidality: Patient denies having any suicidal or homicidal ideation intent or plan. Perceptions: Patient denies any auditory or visual hallucinations. Though content/process: There is some evidence of paranoid/persecutory thoughts. His thought process is ruminative. Memory and concentration: AOX3, grossly intact for the purposes of this session Judgment and insight: Improving mildly Assessment/Plan: Continue with current diagnosis. Patient continues to meet criteria for inpatient psychiatric admission for symptom stabilization and safety. Will add Haldol 5 mg po BID for psychosis. Monitor for medication compliance and for any psychotropic medication side effects. Will continue to monitor ongoing response to treatment. Encouraged participation in milieu.
[2022-04-07] MEDS: haloperidoL 5 MG TAB PO SCH (19:54)
[2022-04-07] MEDS: SERTRALINE 50 MG TAB PO SCH (19:55)
[2022-04-07] MEDS: PRIMIDONE 50 MG TAB PO SCH (19:55)
[2022-04-07] MEDS: cloNIDine HCL 0.2 MG TAB PO SCH (19:55)
[2022-04-08] MEDS: SYMBICORT 80-4.5 MCG INHALER (MHU) INHALATION SCH ×2 (08:29→20:33)
[2022-04-08] MEDS: haloperidoL 5 MG TAB PO SCH ×2 (08:30→20:30)
[2022-04-08] MEDS: FENOFIBRATE 160 MG TAB PO SCH (08:30)
[2022-04-08] MEDS: NICOTINE 14MG/24HR PATCH TRANSDERM SCH (08:31)
[2022-04-08] MEDS: lamoTRIgine 100 MG TAB PO SCH (08:31)
[2022-04-08] MEDS: hydrOXYzine pamoate 25 MG CAP PO SCH ×2 (08:31→20:30)
[2022-04-08] MEDS: lamoTRIgine 25 MG TAB PO SCH (08:31)
--- NOTE | 2022-04-08 15:57 | P.PN ---
Progress Note - Text Progress Note Date: 04/08/22 Interval history: Patient was directable and agreeable to speak with insurance writer. He reports his mood is "5.5-6 on a scale of 1-10". He is much calmer today, is not agitated. He is tolerating the Haldol 5 mg BID. He reports he slept well last night. He denies auditory or visual hallucinations. He denies suicidal or homicidal ideations intent or plan. Patient denies any side effects from the medications and has been compliant with meds. He reports some "flashes of anxiety". He reports it is his birthday tomorrow and he hopes to go home. Mental status exam: General Appearance: Patient appears to be stated age is alert, directable, and cooperative. Behavior: No agitated behavior. He is calm and directable. Speech: Patient's speech is fluent and verbose, but not pressured. Mood/Affect: Mood is "5.5-6/10", affect is congruent and constricted. Suicidality/Homicidality: Patient denies having any suicidal or homicidal ideation intent or plan. Perceptions: Patient denies any auditory or visual hallucinations. Though content/process: There is no evidence of paranoid or persecutory thoughts. His thought process is linear and coherent and goal-directed. Memory and concentration: AOX3, grossly intact for the purposes of this session Judgment and insight: Improving mildly Assessment/Plan: Continue with current diagnosis. Patient continues to meet criteria for inpatient psychiatric admission for symptom stabilization and safety. Continue Haldol 5 mg po BID for psychosis. Monitor for medication compliance and for any psychotropic medication side effects. Will continue to monitor ongoing response to treatment. Encouraged participation in milieu.
[2022-04-08] MEDS: cloNIDine HCL 0.2 MG TAB PO SCH (20:30)
[2022-04-08] MEDS: SERTRALINE 50 MG TAB PO SCH (20:31)
[2022-04-08] MEDS: PRIMIDONE 50 MG TAB PO SCH (20:31)
[2022-04-09] MEDS: NICOTINE 14MG/24HR PATCH TRANSDERM SCH (09:27)
[2022-04-09] MEDS: SYMBICORT 80-4.5 MCG INHALER (MHU) INHALATION SCH ×2 (09:27→20:58)
[2022-04-09] MEDS: lamoTRIgine 25 MG TAB PO SCH (09:28)
[2022-04-09] MEDS: haloperidoL 5 MG TAB PO SCH ×2 (09:28→20:59)
[2022-04-09] MEDS: lamoTRIgine 100 MG TAB PO SCH (09:28)
[2022-04-09] MEDS: hydrOXYzine pamoate 25 MG CAP PO SCH ×2 (09:28→20:58)
[2022-04-09] MEDS: FENOFIBRATE 160 MG TAB PO SCH (09:28)
--- NOTE | 2022-04-09 10:09 | P.PN ---
Subjective Progress Note Date: 04/09/22 Interval history: Patient was seen in his room where he was laying down comfortably Patient states that he does not like to socialize and that he has done all that before none of them seem to be helpful He states that he is been compliant with all his appointments with the doctors even though he personally feels that he does not need them He says that he is not sure as to why he is here He says that he was discharged last week when I had seen him but had to come back within few days because he had a breakdown patient however would not explain what the breakdown was or the specifics Patient however continues to demand that he be discharged since he has been spent his last 5 birthdays in the hospital and this was his birthday Mental status exam: General Appearance: Patient appears to be stated age is alert, directable, and cooperative. Behavior: No agitated behavior. He is calm and directable. Speech: Patient's speech is fluent and verbose, but not pressured. Mood/Affect: Mood is constricted. Suicidality/Homicidality: Patient denies having any suicidal or homicidal ideation intent or plan. Perceptions: Patient denies any auditory or visual hallucinations. Though content/process: There is no evidence of paranoid or persecutory thoughts. His thought process is linear and coherent and goal-directed. Memory and concentration: AOX3, grossly intact for the purposes of this session Judgment and insight: Remains impaired Problem-solving abilities poor Assessment/Plan: Continue with current diagnosis. Patient continues to meet criteria for inpatient psychiatric admission for symptom stabilization and safety. Continue Haldol 5 mg po BID for psychosis. Monitor for medication compliance and for any psychotropic medication side effects. Will continue to monitor ongoing response to treatment. Encouraged participation in [employer]. Encourage the patient to participate in the [employer] treatment Burt Ling Marroquin 04/09/2022 Objective - Vital Signs Vital signs: Vital Signs Temp 97.7 F 04/09/22 06:54 Pulse 52 L 04/09/22 06:54 Resp 16 04/09/22 06:54 BP 118/67 04/09/22 06:54 Pulse Ox 96 04/07/22 06:51 - Labs CBC & Chem 7: 04/06/22 06:27 04/06/22 06:27
[2022-04-09] MEDS: PRIMIDONE 50 MG TAB PO SCH (20:58)
[2022-04-09] MEDS: SERTRALINE 50 MG TAB PO SCH (20:58)
[2022-04-09] MEDS: cloNIDine HCL 0.2 MG TAB PO SCH (20:58)
[2022-04-10] MEDS: lamoTRIgine 25 MG TAB PO SCH (08:58)
[2022-04-10] MEDS: SYMBICORT 80-4.5 MCG INHALER (MHU) INHALATION SCH ×2 (08:58→21:20)
[2022-04-10] MEDS: NICOTINE 14MG/24HR PATCH TRANSDERM SCH (08:58)
[2022-04-10] MEDS: FENOFIBRATE 160 MG TAB PO SCH (08:59)
[2022-04-10] MEDS: hydrOXYzine pamoate 25 MG CAP PO SCH ×2 (08:59→21:21)
[2022-04-10] MEDS: lamoTRIgine 100 MG TAB PO SCH (08:59)
[2022-04-10] MEDS: haloperidoL 5 MG TAB PO SCH ×2 (08:59→21:21)
--- NOTE | 2022-04-10 09:59 | P.PN ---
Subjective Progress Note Date: 04/10/22 Principal diagnosis: Bipolar disorder Personality disorder unspecified Interval history: Patient agreed to be seen by this therapist Patient reports that he does not agree with the diagnoses of bipolar disorder and that he thinks that he only has PTSD He feels that his may be cheating on him and that he does not blame her due to his chronic health issues He also feels that his work had been very stressful and that if they would have allowed him to have some flexible schedule that he would not be in the shape that he is in now He feels that the external circumstances are all responsible for his breakdown Mental status exam: General Appearance: Patient appears to be stated age is alert, directable, and cooperative. Behavior: No agitated behavior. He is calm and directable. Speech: Patient's speech is fluent and verbose, but not pressured. Mood/Affect: Mood is constricted. Suicidality/Homicidality: Patient denies having any suicidal or homicidal ideation intent or plan. Perceptions: Patient denies any auditory or visual hallucinations. Though content/process: There is no evidence of paranoid or persecutory thoughts. His thought process exhibit projection and rationalization and intellectualization as well as denial about his illness Memory and concentration: AOX3, grossly intact for the purposes of this session Judgment and insight: Remains impaired Problem-solving abilities poor Assessment/Plan: Continue with current diagnosis. Patient continues to meet criteria for inpatient psychiatric admission for symptom stabilization and safety. Continue Haldol 5 mg po BID for psychosis. Patient is also on Lamictal 150 mg daily which needs to be gradually increased Monitor for medication compliance and for any psychotropic medication side effects. Will continue to monitor ongoing response to treatment. Encouraged participation in [employer]. Encourage the patient to participate in the milieu treatment Burt Dubon M.D. 04/10/2022 Objective - Vital Signs Vital signs: Vital Signs Temp 98 F 04/10/22 06:56 Pulse 59 L 04/10/22 06:56 Resp 16 04/09/22 21:01 BP 106/65 04/10/22 06:56 Pulse Ox 98 04/10/22 06:56 - Labs CBC & Chem 7: 04/06/22 06:27 04/06/22 06:27
[2022-04-10] MEDS: cloNIDine HCL 0.2 MG TAB PO SCH (21:21)
[2022-04-10] MEDS: PRIMIDONE 50 MG TAB PO SCH (21:21)
[2022-04-10] MEDS: SERTRALINE 50 MG TAB PO SCH (21:21)
[2022-04-11] MEDS: SYMBICORT 80-4.5 MCG INHALER (MHU) INHALATION SCH ×2 (09:17→21:10)
[2022-04-11] MEDS: FENOFIBRATE 160 MG TAB PO SCH (09:18)
[2022-04-11] MEDS: lamoTRIgine 25 MG TAB PO SCH (09:20)
[2022-04-11] MEDS: haloperidoL 5 MG TAB PO SCH ×2 (09:20→21:11)
[2022-04-11] MEDS: hydrOXYzine pamoate 25 MG CAP PO SCH ×2 (09:21→21:10)
[2022-04-11] MEDS: NICOTINE 14MG/24HR PATCH TRANSDERM SCH (09:21)
[2022-04-11] MEDS: lamoTRIgine 100 MG TAB PO SCH (09:21)
--- NOTE | 2022-04-11 10:12 | P.PN ---
Subjective Progress Note Date: 04/11/22 Principal diagnosis: Bipolar disorder Personality disorder unspecified Interval history: Patient agreed to be seen by this therapist Patient reports that he does not agree with the diagnoses of bipolar disorder and that he thinks that he only has PTSD Patient got very upset and angry when he was suggested that we should have a family meeting with his involved Patient feels that we are screwing things up for him and that we should leave everything alone and just discharged him He feels that there was no family meeting the last time and there was no need for one now Patient states that interfering in his personal life that we have no business doing so, and that it was his personal business Patient also states that he had it all wrong and that his problems are not as bad as it think it is Mental status exam: General Appearance: Patient appears to be stated age is alert, and oriented to place and person Behavior: Patient seemed to get agitated easily today and was defensive and projective Patient seemed to be very irritated or upset about having a family meeting with his Speech: Patient's speech is fluent and verbose, but not pressured. Mood/Affect: Mood is somewhat volatile Suicidality/Homicidality: Patient denies having any suicidal or homicidal ideation intent or plan. Perceptions: Patient denies any auditory or visual hallucinations. Though content/process: There is no evidence of paranoid or persecutory thoughts. His thought process exhibit projection and rationalization and intellectualization as well as denial about his illness Memory and concentration: AOX3, grossly intact for the purposes of this session Judgment and insight: Remains impaired Problem-solving abilities poor Assessment/Plan: Continue with current diagnosis. Patient continues to meet criteria for inpatient psychiatric admission for sympt om stabilization and safety. Continue Haldol 5 mg po BID for psychosis. Patient is also on Lamictal 150 mg daily which needs to be gradually increased Monitor for medication compliance and for any psychotropic medication side effects. Will continue to monitor ongoing response to treatment. Encouraged participation in milieu. Encourage the patient to participate in the [facility] treatment Burt Dubon M.D. 04/11/2022 Objective - Vital Signs Vital signs: Vital Signs Temp 98 F 04/10/22 06:56 Pulse 73 04/10/22 21:26 Resp 16 04/10/22 21:26 BP 108/68 04/10/22 21:26 Pulse Ox 98 04/10/22 06:56 - Labs CBC & Chem 7: 04/06/22 06:27 04/06/22 06:27
[2022-04-11] MEDS: cloNIDine HCL 0.2 MG TAB PO SCH (21:10)
[2022-04-11] MEDS: SERTRALINE 50 MG TAB PO SCH (21:11)
[2022-04-11] MEDS: PRIMIDONE 50 MG TAB PO SCH (21:12)
[2022-04-12] MEDS: hydrOXYzine pamoate 25 MG CAP PO SCH (08:33)
[2022-04-12] MEDS: lamoTRIgine 25 MG TAB PO SCH (08:33)
[2022-04-12] MEDS: FENOFIBRATE 160 MG TAB PO SCH (08:33)
[2022-04-12] MEDS: lamoTRIgine 100 MG TAB PO SCH (08:33)
[2022-04-12] MEDS: haloperidoL 5 MG TAB PO SCH (08:33)
[2022-04-12] MEDS: NICOTINE 14MG/24HR PATCH TRANSDERM SCH (08:36)
[2022-04-12] MEDS: SYMBICORT 80-4.5 MCG INHALER (MHU) INHALATION SCH (08:36)
--- NOTE | 2022-04-12 09:35 | P.PN ---
Subjective Progress Note Date: 04/12/22 Principal diagnosis: Bipolar disorder Personality disorder unspecified Interval history: I'm looking forward to going home This I will be able to work things out with my and we will try to get along best we can My children will be there and they will be supportive and comfort Mental status exam: General Appearance: Patient appears to be stated age is alert, and oriented to place and person Behavior: Patient is cooperative and is able to interact without any anxiety and agitation or frustration Affect is euthymic Speech: Patient's speech is fluent and verbose, but not pressured. Mood/Affect: Euthymic Suicidality/Homicidality: Patient denies having any suicidal or homicidal ideation intent or plan. Perceptions: Patient denies any auditory or visual hallucinations. Though content/process: There is no evidence of paranoid or persecutory t houghts. Memory and concentration: AOX3, grossly intact for the purposes of this session Judgment and insight: Remains concrete Problem-solving abilities remains self-centered and concrete Assessment/Plan: Although patient has made limited progress in his ability to understand his personality and his tendency to rationalize intellectualize and be projective patient is currently not suicidal or homicidal patient has long-term issues that could be further addressed as an outpatient We'll continue his current medications as prescribed Patient currently plans to stay with his although there are some other plans to move out to a different living arrangement in the future due to their marital discord although they do not seem to have any major confrontational arguments or problems but more of a avoidance Patient is willing to consider ongoing treatment as an outpatient Patient will be discharged today and is stable but guarded condition for with recommendations for follow-up with local mental health services for long-term care jennifer Dubon M.D. 04/12/2022 Objective - Vital Signs Vital signs: Vital Signs Temp 98 F 04/10/22 06:56 Pulse 93 04/11/22 21:16 Resp 16 04/11/22 21:16 BP 119/72 04/11/22 21:16 Pulse Ox 98 04/10/22 06:56 - Labs CBC & Chem 7: 04/06/22 06:27 04/06/22 06:27
[2022-04-12 09:41] VITALS: BP 93/62; PULSE 68; TEMP 97.3
--- NOTE | 2022-04-12 10:34 | P.DS ---
Providers Date of admission: 04/05/22 13:31 Attending physician: Blaine Dsouza MD Consults: 04/05/22 15:31 Consult Physician Routine Consulting Provider: Kamlesh Rendon Consult Reason/Comments: Medical Consult for new admit Do you want consulting provider notified?: Already Contacted Primary care physician: Tsering Zimmerman [facility] Course: This is a discharge summary on Jaxson Demarco who is a 42-year-old male and was hospitalized on 04/05/[address] Hood IDENTIFYING DATA: Patient is a , unemployed, 41-year-old male with significant history of schizoaffective disorder, bipolar type, presents emergency department on 04/05/2022, for paranoia HPI: Patient presented to the hospital on 04/05/2022, brought into the emergency department by his after been recently discharged from this mental health unit on 04/03/2022. The patient was reported to be up at approximately 2 AM the morning of 04/05/2022, and was noted to be very paranoid. 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 The patient was recently discharged from this hospital and is currently under a deferral status. During his last hospitalization, the patient did receive Hald ol decanoate 100 mg IM on 04/02/2022. He was also continued on his regimen of Lamictal, clonidine, and Zoloft. In between his last discharge and this admission, the patient vehemently denies any drug use. He is unable to identify the reasons why he is currently readmitted to the hospital and only expresses that he and his need to be . The patient is currently denying any suicidal or homicidal ideation, intention, and/or plan. He is currently denying any auditory or visual hallucinations. Remains guarded and is not reporting any overt paranoia or other delusions. The patient has been noted to be very bizarre to staff. Currently, the patient is found lying down on his floor with no bedsheet or mattress. When asked if he is willing to transfer back to his bed, the patient states that he is happy being on the floor. He has not participated in meals. He subsequently admitted for further evaluation and management of his acute psychosis. Hospital course: Across hospitalization patient received a routine physical examination with no acute physical issues were identified at this time that require attention. Psychiatric problems identified included psychomotor agitation and dysphoria anger and projection rationalization and intellectualization poor coping skills and the denial and projection Patient remained very passive-aggressive projective and intellectualizing. Patient's insight and his problem remained fluctuating Patient did not exhibit any violent or angry outbursts although he remains somewhat isolative with limited participation in on the abdi activities Patient has not exhibited any behavior dangerous to himself or others and the his current presentation appears to be more long-standing personality issues and added with anger and frustration over his marital conflicts Several attempts were made for patient to be engaged in individual and family counseling where he remains resistive Patient has shown some improvement over developing some insight as well as his anger and frustration also seems to have increased in intensity Patient is willing to return back to his family and wants to work on his current issues and problems as an outpatient. Patient appears to be a candidate for long-term ongoing outpatient counseling and supportive care as well as to work towards his coping skills and a beer or modification Patient's discharge medications are Haldol 10 mg at bedtime hydroxyzine 100 mg at bedtime and 50 mg when necessary, lamotrigine 50 mg 50 mg daily, Zoloft 200 mg at nighttime clonidine 0.2 mg at bedtime . Patient is advised to continue follow-up with his psychiatrist as well as local mental services for further follow-up care He was discharged as stable but guarded condition with recommendations to follow-up as directed Patient at time of discharge is not suicidal or homicidal and is motivated for outpatient treatment [facility] 04/12/2022 Patient Condition at Discharge: Fair Plan - Discharge Summary Discharge Rx Participant: Yes New Discharge Prescriptions: New Nicotine 14Mg/24Hr Patch [Habitrol] 1 patch TRANSDERM DAILY 7 Days patch haloperidoL [Haldol] 10 mg PO HS 14 Days tab Albuterol Inhaler [Ventolin Hfa Inhaler] 2 puff INHALATION RT-Q6H PRN gm PRN Reason: Shortness Of Breath Primidone [Mysoline] 100 mg PO HS tab hydrOXYzine pamoate [Vistaril] 50 mg PO QAM 14 Days cap Continue Albuterol Sulfate [Proventil Hfa] 2 puff INHALATION RT-Q6H PRN PRN Reason: Shortness Of Breath Fluticasone Propion/Salmeterol [Wixela 250-50 Inhub] 1 puff INHALATION RT-BID Haloperidol Decanoate [Haldol D] 100 mg IM Q28D #1 each cloNIDine HCL [Catapres] 0.2 mg PO HS 14 Days tab hydrOXYzine pamoate [hydrOXYzine PAMOATE] 100 mg PO HS #14 cap lamoTRIgine [LaMICtal] 50 mg PO DAILY 14 Days tab Sertraline [Zoloft] 200 mg PO HS 14 Days tab Fenofibrate Nanocrystallized [Fenofibrate] 145 mg PO DAILY Changed lamoTRIgine [LaMICtal] 100 mg PO DAILY 14 Days tab Discontinued Primidone [Mysoline] 100 mg PO HS hydrOXYzine pamoate [Vistaril] 50 mg PO QAM Discharge Medication List Albuterol Sulfate [Proventil Hfa] 2 puff INHALATION RT-Q6H PRN 11/27/21 [History] Fenofibrate Nanocrystallized [Fenofibrate] 145 mg PO DAILY 03/25/22 [History] Fluticasone Propion/Salmeterol [Wixela 250-50 Inhub] 1 puff INHALATION RT-BID 03/25/22 [History] Haloperidol Decanoate [Haldol D] 100 mg IM Q28D #1 each 04/03/22 [Rx] Albuterol Inhaler [Ventolin Hfa Inhaler] 2 puff INHALATION RT-Q6H PRN gm 04/12/22 [Rx] Nicotine 14Mg/24Hr Patch [Habitrol] 1 patch TRANSDERM DAILY 7 Days patch 04/12/22 [Rx] Primidone [Mysoline] 100 mg PO HS tab 04/12/22 [Rx] Sertraline [Zoloft] 200 mg PO HS 14 Days tab 04/12/22 [Rx] cloNIDine HCL [Catapres] 0.2 mg PO HS 14 Days tab 04/12/22 [Rx] haloperidoL [Haldol] 10 mg PO HS 14 Days tab 04/12/22 [Rx] hydrOXYzine pamoate [Vistaril] 50 mg PO QAM 14 Days cap 04/12/22 [Rx] hydrOXYzine pamoate [hydrOXYzine PAMOATE] 100 mg PO HS #14 cap 04/12/22 [Rx] lamoTRIgine [LaMICtal] 50 mg PO DAILY 14 Days tab 04/12/22 [Rx] lamoTRIgine [LaMICtal] 100 mg PO DAILY 14 Days tab 04/12/22 [Rx] Follow up Appointment(s)/Referral(s): Tsering Zimmerman DO [Primary Care Provider] - 1-2 days Activity/Diet/Wound Care/Special Instructions: Activity and diet as tolerated. Avoid the use of street drugs and alcohol. Take all medications as prescribed. When you are in need of refills on your medications please contact your medical provider and/or outpatient psychiatrist to have this done. Please go to scheduled outpatient appointment for aftercare treatment. If symptoms return or become worse, call the crisis line at and/or go to the nearest emergency room for evaluation Discharge Disposition: HOME SELF-CARE
== END 2022-04-12 12:18 | disposition home or self-care (01) | DRG 885 ==
LOC: EC 08:22 → 3MHU 13:31
PROVIDERS: ADMIT Psychiatry & Neurology Psychiatry; ATTEND Psychiatry & Neurology Psychiatry
DX: F25.0 Schizoaffective disorder, bipolar type (principal); F12.10 Cannabis abuse, uncomplicated; F15.10 Other stimulant abuse, uncomplicated; F17.210 Nicotine dependence, cigarettes, uncomplicated; F43.10 Post-traumatic stress disorder, unspecified; F60.89 Other specific personality disorders; Z79.899 Other long term (current) drug therapy; Z63.5 Disruption of family by separation and divorce; Z28.310 Unvaccinated for COVID-19; Z20.822 Contact with and (suspected) exposure to COVID-19; R45.1 Restlessness and agitation
CPT/HCPCS: 80053; 80061; 80306; 81003; 82075; 82248; 83036; 84443; 85025; 87635; 99285

== ENCOUNTER 2022-04-14 19:56 | Emergency (ER) | payer BC ==
[2022-04-14 20:12] VITALS: RESP 16; TEMP 97.8
--- NOTE | 2022-04-14 20:46 | ED ---
General Adult HPI - General Chief complaint: Overdose Stated complaint: Overdose Time Seen by Provider: 04/14/22 20:44 Source: patient, family Mode of arrival: ambulatory Limitations: no limitations - History of Present Illness Initial comments: Patient presents to the ED with his for evaluation. Patient states that he took between 10 and 15 of his Zoloft 100 mg pills at about 1500 today. Patient states that he was arguing with his today, and he states that he took the pills to "stop the pain". Patient denies taking the pills in attempt to harm himself or in a suicidal attempt. Patient denies having suicidal ideations. Patient states that he regrets taking the pills. Patient states that he has had trouble "focusing" with his vision since taking the pills. Patient states that he has a known baseline essential tremor, and he states that his tremor has been slightly worse at times this evening. Patient denies any other medication abuse or overdose. Patient denies alcohol or illicit drug use. Patient denies suicidal attempt, suicidal ideations, hallucinations, homicidal ideations, any pain, fever, headache, focal neuro deficit, chest pain or pressure, dyspnea, cough or cold symptoms, palpitations, dizziness, abdominal pain, nausea/vomiting/diarrhea, dysuria or urinary symptoms, or any other symptoms or complaints. - Related Data Home Medications Medication Instructions Recorded Confirmed Fenofibrate Nanocrystallized 145 mg PO HS 09/02/17 04/14/22 [Fenofibrate] Albuterol Inhaler [Ventolin Hfa 2 puff INHALATION RT-Q4H PRN 04/14/22 04/14/22 Inhaler] Fluticasone Propion/Salmeterol 1 puff INHALATION RT-BID 04/14/22 04/14/22 [Wixela 250-50 Inhub] Primidone [Mysoline] 100 mg PO HS 04/14/22 04/14/22 Sertraline [Zoloft] 200 mg PO HS 04/14/22 04/14/22 cloNIDine HCL [Catapres] 0.2 mg PO HS 04/14/22 04/14/22 haloperidoL [Haloperidol] 5 mg PO BID 04/14/22 04/14/22 hydrOXYzine pamoate [Vistaril] 50 mg PO TID 04/14/22 04/14/22 lamoTRIgine [LaMICtal] 25 mg PO BID 04/14/22 04/14/22 lamoTRIgine [LaMICtal] 100 mg PO DAILY 04/14/22 04/14/22 Allergies Allergy/AdvReac Type Severity Reaction Status Date / Time No Known Allergies Allergy Verified 04/14/22 21:46 Review of Systems ROS Statement: Those systems with pertinent positive or pertinent negative responses have been documented in the HPI. ROS Other: All systems not noted in ROS Statement are negative. Past Medical History Past Medical History: Asthma, GERD/Reflux, Hyperlipidemia Additional Past Medical History / Comment(s): umbilical hernia,hiatal hernia,frequent vomiting and dry heaves, hx of colon poyps, diverticuli, migra jef History of Any Multi-Drug Resistant Organisms: None Reported Past Surgical History: Hernia Repair Additional Past Surgical History / Comment(s): EGD,colonoscopy, umbilical hernia repair, Past Anesthesia/Blood Transfusion Reactions: No Reported Reaction Past Psychological History: Anxiety, Depression Smoking Status: Current every day smoker Past Alcohol Use History: Rare Past Drug Use History: None Reported - Past Family History Mother Family Medical History: No Reported History General Exam Limitations: no limitations General appearance: alert, in no apparent distress Head exam: Present: atraumatic, normocephalic Eye exam: Present: normal appearance, PERRL, EOMI ENT exam: Present: mucous membranes moist Neck exam: Present: other (Trachea is in midline) Respiratory exam: Present: normal lung sounds bilaterally. Absent: respiratory distress, wheezes, rales, rhonchi, stridor Cardiovascular Exam: Present: regular rate, normal rhythm, normal heart sounds, other (Normal radial pulses bilaterally) GI/Abdominal exam: Present: soft. Absent: distended, tenderness, guarding Extremities exam: Absent: tenderness, pedal edema Neurological exam: Present: alert, oriented X3, CN II-XII intact, other (Baseline essential tremor). Absent: motor sensory deficit Psychiatric exam: Present: normal affect, normal mood Skin exam: Present: warm, dry, intact, normal color Course Vital Signs 04/14/22 04/14/22 04/14/22 20:08 21:25 22:45 Temperature 97.8 F Pulse Rate 80 77 81 Respiratory 16 16 16 Rate Blood Pressure 124/83 124/82 130/83 O2 Sat by Pulse 96 98 98 Oximetry - Reevaluation(s) Reevaluation #1: 04/14/22 21:01 Case, H&P and pending ED workup were discussed with Cody Tee with the [place] [facility]. He states that if the patient's labs are unremarkable and the patient remains stable, he can be medically cleared at 11 PM today, which will be 8 hours status post reported ingestion. He states that he will follow back up on the patient's lab results. He has no further recommendations at this time. 04/14/22 23:09 Patient remains alert and stable normal/stable vital signs. Patient's labs are fairly unremarkable. Patient is now over 8 hours status post reported ingestion. Patient has been medically cleared. Awaiting EPS evaluation this time. Patient was endorsed to Dr. Fuentes (this is ED physician) secondary to end of my shift. Dr. Fuentes to follow up on EPS recommendations and to take over care of the patient this time. EKG Findings - EKG Comments: EKG Findings:: Normal sinus rhythm, ventricular rate of 75 bpm, no ectopy, normal OH and QRS intervals, normal QT interval, normal axis, no ST or T-wave abnormality Medical Decision Making - Lab Data Result diagrams: 04/14/22 21:02 04/14/22 21:02 Lab Results 04/14/22 04/14/22 04/14/22 Range/Units 21:02 21:02 21:02 WBC 8.5 (3.8-10.6) k/uL RBC 4.77 (4.30-5.90) m/uL Hgb 14.2 (13.0-17.5) gm/dL Hct 43.5 (39.0-53.0) % MCV 91.1 (80.0-100.0) fL MCH 29.8 (25.0-35.0) pg MCHC 32.7 (31.0-37.0) g/dL RDW 12.7 (11.5-15.5) % Plt Count 290 (150-450) k/uL MPV 7.5 Neutrophils % 74 % Lymphocytes % 18 % Monocytes % 5 % Eosinophils % 1 % Basophils % 1 % Neutrophils # 6.3 (1.3-7.7) k/uL Lymphocytes # 1.5 (1.0-4.8) k/uL Monocytes # 0.5 (0-1.0) k/uL Eosinophils # 0.1 (0-0.7) k/uL Basophils # 0.1 (0-0.2) k/uL PT 11.1 (9.0-12.0) sec INR 1.0 (<1.2) APTT 23.4 (22.0-30.0) sec Sodium 137 (137-145) mmol/L Potassium 4.1 (3.5-5.1) mmol/L Chloride 105 (98-107) mmol/L Carbon Dioxide 25 (22-30) mmol/L Anion Gap 7 mmol/L BUN 5 L (9-20) mg/dL Creatinine 0.98 (0.66-1.25) mg/dL Est GFR (CKD-EPI)AfAm >90 (>60 ml/min/1.73 sqM) Est GFR (CKD-EPI)NonAf >90 (>60 ml/min/1.73 sqM) Glucose 108 H (74-99) mg/dL Plasma Lactic Acid Serafin (0.7-2.0) mmol/L Calcium 9.4 (8.4-10.2) mg/dL Total Bilirubin 0.3 (0.2-1.3) mg/dL AST 28 (17-59) U/L ALT 21 (4-49) U/L Alkaline Phosphatase 54 (38-126) U/L Total Protein 7.1 (6.3-8.2) g/dL Albumin 4.5 (3.5-5.0) g/dL Salicylates <1.0 mg/dL Urine Opiates Screen (NotDetected) Ur Oxycodone Screen (NotDetected) Urine Methadone Screen (NotDetected) Ur Propoxyphene Screen (NotDetected) Acetaminophen <10.0 ug/mL Ur Barbiturates Screen (NotDetected) U Tricyclic Antidepress (NotDetected) Ur Phencyclidine Scrn (NotDetected) Ur Amphetamines Screen (NotDetected) U Methamphetamines Scrn (NotDetected) U Benzodiazepines Scrn (NotDetected) Urine Cocaine Screen (NotDetected) U Marijuana (THC) Screen (NotDetected) Serum Alcohol <10 mg/dL 04/14/22 04/14/22 Range/Units 21:02 23:27 WBC (3.8-10.6) k/uL RBC (4.30-5.90) m/uL Hgb (13.0-17.5) gm/dL Hct (39.0-53.0) % MCV (80.0-100.0) fL MCH (25.0-35.0) pg MCHC (31.0-37.0) g/dL RDW (11.5-15.5) % Plt Count (150-450) k/uL MPV Neutrophils % % Lymphocytes % % Monocytes % % Eosinophils % % Basophils % % Neutrophils # (1.3-7.7) k/uL Lymphocytes # (1.0-4.8) k/uL Monocytes # (0-1.0) k/uL Eosinophils # (0-0.7) k/uL Basophils # (0-0.2) k/uL PT (9.0-12.0) sec INR (<1.2) APTT (22.0-30.0) sec Sodium (137-145) mmol/L Potassium (3.5-5.1) mmol/L Chloride (98-107) mmol/L Carbon Dioxide (22-30) mmol/L Anion Gap mmol/L BUN (9-20) mg/dL Creatinine (0.66-1.25) mg/dL Est GFR (CKD-EPI)AfAm (>60 ml/min/1.73 sqM) Est GFR (CKD-EPI)NonAf (>60 ml/min/1.73 sqM) Glucose (74-99) mg/dL Plasma Lactic Acid Serafin 1.7 (0.7-2.0) mmol/L Calcium (8.4-10.2) mg/dL Total Bilirubin (0.2-1.3) mg/dL AST (17-59) U/L ALT (4-49) U/L Alkaline Phosphatase (38-126) U/L Total Protein (6.3-8.2) g/dL Albumin (3.5-5.0) g/dL Salicylates mg/dL Urine Opiates Screen Not Detected (NotDetected) Ur Oxycodone Screen Not Detected (NotDetected) Urine Methadone Screen Not Detected (NotDetected) Ur Propoxyphene Screen Not Detected (NotDetected) Acetaminophen ug/mL Ur Barbiturates Screen Detected H (NotDetected) U Tricyclic Antidepress Not Detected (NotDetected) Ur Phencyclidine Scrn Not Detected (NotDetected) Ur Amphetamines Screen Not Detected (NotDetected) U Methamphetamines Scrn Not Detected (NotDetected) U Benzodiazepines Scrn Not Detected (NotDetected) Urine Cocaine Screen Not Detected (NotDetected) U Marijuana (THC) Screen Not Detected (NotDetected) Serum Alcohol mg/dL Disposition Clinical Impression: Medication overdose Disposition: HOME SELF-CARE Instructions (If sedation given, give patient instructions): Depression (ED), Help Prevent Suicide (ED) Is patient prescribed a controlled substance at d/c from ED?: No Referrals: Tsering Zimmerman DO [Primary Care Provider] - 1-2 days
[2022-04-14] MEDS ORDERED: SODIUM CHLORIDE 0.9% 500 ML 500 ML IV STA (20:55)
[2022-04-14 21:16] LABS: Basophils # (A) 0.1 k/uL (0-0.2); Basophils % (A) 1 %; Eosinophils # (A) 0.1 k/uL (0-0.7); Eosinophils % (A) 1 %; HCT 43.5 % (39.0-53.0); HGB 14.2 gm/dL (13.0-17.5); Lymphocytes # (A) 1.5 k/uL (1.0-4.8); Lymphocytes % (A) 18 %; MCH 29.8 pg (25.0-35.0); MCHC 32.7 g/dL (31.0-37.0); MCV 91.1 fL (80.0-100.0); Mean Platelet Volume 7.5; Monocytes # (A) 0.5 k/uL (0-1.0); Monocytes % (A) 5 %; Neutrophils # (A) 6.3 k/uL (1.3-7.7); Neutrophils % (A) 74 %; Platelet Count 290 k/uL (150-450); RBC 4.77 m/uL (4.30-5.90); RDW 12.7 % (11.5-15.5); WBC 8.5 k/uL (3.8-10.6)
[2022-04-14 21:26] LABS: ALT 21 U/L (4-49); AST 28 U/L (17-59); Acetaminophen <10.0 ug/mL; African American GFR (CKD) >90 (>60 ml/min/1.73 sqM); Albumin 4.5 g/dL (3.5-5.0); Alcohol <10 mg/dL; Alkaline Phosphatase 54 U/L (38-126); Anion Gap 7 mmol/L; Blood Urea Nitrogen 5 mg/dL (9-20); Calcium 9.4 mg/dL (8.4-10.2); Carbon Dioxide 25 mmol/L (22-30); Chloride 105 mmol/L (98-107); Glucose 108 mg/dL (74-99); Non-African American GFR(CKD) >90 (>60 ml/min/1.73 sqM); Potassium 4.1 mmol/L (3.5-5.1); Salicylate <1.0 mg/dL; Sodium 137 mmol/L (137-145); Total Bilirubin 0.3 mg/dL (0.2-1.3); Total Protein 7.1 g/dL (6.3-8.2)
[2022-04-14 21:30] LABS: Partial Thromboplastin Time 23.4 sec (22.0-30.0); Prothrombin Time 11.1 sec (9.0-12.0)
[2022-04-14 22:46] VITALS: BP 130/83; PULSE 81
[2022-04-15 00:03] LABS: Amphetamine Screen,Urine Not Detected (NotDetected); Benzodiazepines Screen,Urine Not Detected (NotDetected); Cocaine Screen,Urine Not Detected (NotDetected); Methadone Screen, Urine Not Detected (NotDetected); Opiate Screen,Urine Not Detected (NotDetected); Phencyclidine Screen,Urine Not Detected (NotDetected); Tricyclic Antidepressant,Urine Not Detected (NotDetected); Urn Cannabinoid Scrn Not Detected (NotDetected)
[2022-04-15 00:04] LABS: Barbiturate Screen,Urine Detected (NotDetected); Oxycodone Screen, Urine Not Detected (NotDetected)
== END 2022-04-15 00:45 | disposition home or self-care (01) ==
LOC: MERGE 19:56 → EC 19:56
DX: T43.221A Poisoning by selective serotonin reuptake inhibitors, accidental (unintentional), initial encounter (principal); J45.909 Unspecified asthma, uncomplicated; F17.200 Nicotine dependence, unspecified, uncomplicated
CPT/HCPCS: 36415; 80053; 80143; 80179; 80306; 80320; 82075; 83605; 85025; 85610; 85730; 93005